=== PATIENT | male | born 1950 | race Caucasian/White ===

== ENCOUNTER 2016-08-12 10:47 | Observation (INO) | payer OTHER ==
--- NOTE | 2016-08-12 12:14 | ED PDOC ---
Arrival/HPI - General Chief Complaint: Chest Pain Time Seen by Provider: 08/12/16 11:24 Historian: Patient - History of Present Illness Narrative History of Present Illness (Text): 08/12/16 12:15 A 65 year old male presents to the emergency department complaining of 2 days chest pain. Patient also notes dizziness for the past few weeks. Patient reports chest pain this morning, but currently does not have chest pain. Describes pain as sharp and tightness. Patient reports stent in [facility]. Patient notes some weakness, but denies fevers or any other complaints at this time. No PMD Time/Duration: Other (2 days) Symptom Onset: Sudden Activities at Onset: Rest Context: Home Associated Symptoms (Text): weakness Past Medical History - Provider Review Nursing Documentation Reviewed: Yes - Cardiac Hx Hypertension: Yes - Pulmonary Hx Respiratory Disorders: No - Neurological Hx Vertigo: Yes - HEENT Hx HEENT Disorder: No - Renal Hx Kidney Stones: Yes - Endocrine/Metabolic Hx Diabetes Mellitus Type 2: Yes - Hematological/Oncological Hx Blood Disorders: No - Integumentary Hx Dermatological Disorder: No - Musculoskeletal/Rheumatological Hx Gout: Yes - Gastrointestinal Hx Gastroesophageal Reflux: Yes - Genitourinary/Gynecological Hx Genitourinary Disorders: No - Psychiatric Hx Psychophysiologic Disorder: No Hx Substance Use: No - Surgical History Hx Appendectomy: Yes Hx Cholecystectomy: Yes Other/Comment: HEMORHOID Family/Social History - Physician Review Nursing Documentation Reviewed: Yes Family/Social History: No Known Family HX Smoking Status: Never Smoked Hx Alcohol Use: Yes Frequency of alcohol use: Socially Hx Substance Use: No Allergies/Home Meds Allergies/Adverse Reactions: Allergies Penicillins Allergy (Verified 08/12/16 11:04) RASH Home Medications: Home Meds Medication Instructions Recorded Confirmed Allopurinol [Zyloprim] 100 mg PO PRN PRN 08/12/16 08/12/16 Atenolol 50 mg PO DAILY 08/12/16 08/12/16 Cholecalciferol [Vitamin D 1000 IU] 1 tab PO DAILY 08/12/16 08/12/16 Clopidogrel [Plavix] 75 mg PO DAILY 08/12/16 08/12/16 Losartan [Cozaar] 100 mg PO DAILY 08/12/16 08/12/16 MetFORMIN [glucoPHAGE] 1 tab PO BID 08/12/16 08/12/16 Pantoprazole [Protonix EC Tab] 40 mg PO DAILY 08/12/16 08/12/16 Rosuvastatin Calcium [Crestor] 10 mg PO DAILY 08/12/16 08/12/16 Review of Systems - Review of Systems Constitutional: Fatigue. absent: Fevers Eyes: Normal ENT: Normal Respiratory: Normal Cardiovascular: Chest Pain Gastrointestinal: Normal Genitourinary Male: Normal Musculoskeletal: Normal Skin: Normal Neurological: Normal Endocrine: Normal Hemo/Lymphatic: Normal Psychiatric: Normal Physical Exam Vital Signs Reviewed: Yes Vital Signs Temp Pulse Resp BP Pulse Ox 08/12/16 17:20 78 16 137/91 H 96 08/12/16 16:48 86 18 143/83 98 08/12/16 15:14 74 18 131/75 96 08/12/16 13:33 79 18 132/77 99 08/12/16 13:30 89 18 138/89 99 08/12/16 12:11 92 H 18 142/90 99 08/12/16 11:21 98.4 F 83 18 144/88 97 08/12/16 11:08 98.4 F 83 16 144/88 97 Temperature: Afebrile Blood Pressure: Normal Pulse: Regular Respiratory Rate: Normal Appearance: Positive for: Well-Appearing, Non-Toxic, Comfortable Pain Distress: None Mental Status: Positive for: Alert and Oriented X 3 - Systems Exam Head: Present: Atraumatic, Normocephalic Pupils: Present: PERRL Extroacular Muscles: Present: EOMI Conjunctiva: Present: Normal Mouth: Present: Moist Mucous Membranes Neck: Present: Normal Range of Motion Respiratory/Chest: Present: Clear to Auscultation, Good Air Exchange. No: Respiratory Distress, Accessory Muscle Use Cardiovascular: Present: Regular Rate and Rhythm, Normal S1, S2. No: Murmurs Abdomen: Present: Normal Bowel Sounds. No: Tenderness, Distention, Peritoneal Signs Back: Present: Normal Inspection Upper Extremity: Present: Normal Inspection. No: Cyanosis, Edema Lower Extremity: Present: Normal Inspection. No: Edema Neurological: Present: GCS=15, CN II-XII Intact, Speech Normal Skin: Present: Warm, Dry, Normal Color. No: Rashes Psychiatric: Present: Alert, Oriented x 3, Normal Insight, Normal Concentration Medical Decision Making ED Course and Treatment: 08/12/16 12:08 Impression: A 65 year old male with chest pain. Differential Diagnosis included but are not limited to: Plan: -- EKG -- chest xray -- labs -- Urinalysis -- Reassess and disposition Progress Notes: EKG: Ordered, reviewed, and independently interpreted the EKG. Rate : 96 BPM Rhythm : NSR Interpretation : LVH Comparison : No previous EKG for comparison. Patient denies aspirin because states "causes acid". chest xray: Creator : Cody Cisneros MD 08/12/2016 12:32 IMPRESSION: No active disease. 08/12/16 13:23 Patient is pain free at this time. Discussed case with Dr. Washington - Lab Interpretations Lab Results: 08/12/16 11:55 08/12/16 11:55 Lab Results 08/12/16 13:00: Urine Color Yellow, Urine Appearance Clear, Urine pH 6.0, Ur Specific Baxley 1.015, Urine Protein Negative, Urine Glucose (UA) Negative, Urine Ketones Negative, Urine Blood Trace-lysed H, Urine Nitrate Negative, Urine Bilirubin Negative, Urine Urobilinogen 0.2, Ur Leukocyte Esterase Negative , Urine RBC 0 - 2, Urine WBC Negative 08/12/16 12:50: PT 10.2, INR 0.94, APTT 26.5 08/12/16 11:55: Triglycerides 392 H, Cholesterol 148, LDL Cholesterol Direct 93 , HDL Cholesterol 30 08/12/16 11:55: Sodium 134, Potassium 3.8, Chloride 98, Carbon Dioxide 28, Anion Gap 12, BUN 9, Creatinine 0.8, Est GFR ( Amer) > 60, Est GFR (Non- Af Amer) > 60, Random Glucose 138 H, Calcium 9.5, Magnesium 2.0, Total Bilirubin 0.6, AST 52, ALT 66 H, Alkaline Phosphatase 79, Lactate Dehydrogenase 340, Total Creatine Kinase 53, Troponin I < 0.01, Total Protein 7.5, Albumin 4.4 , Globulin 3.1, Albumin/Globulin Ratio 1.4 08/12/16 11:55: WBC 8.6, RBC 4.68, Hgb 14.7, Hct 43.8, MCV 93.6, MCH 31.4, MCHC 33.6, RDW 13.3, Plt Count 256, MPV 9.2, Gran % 65.2, Lymph % (Auto) 24.1, Overton % (Auto) 7.3 H, Eos % (Auto) 2.9, Baso % (Auto) 0.5, Gran # 5.62, Lymph # 2.1, Overton # 0.6, Eos # 0.3, Baso # 0.04 I have reviewed the lab results: Yes - RAD Interpretation Radiology Orders: 08/12/16 11:28 CHEST PORTABLE [RAD] Stat - EKG Interpretation Interpreted by ED Physician: Yes Type: 12 lead EKG - Medication Orders Current Medication Orders: Aspirin (Ecotrin) 81 mg PO DAILY LIZ Atenolol (Tenormin) 50 mg PO DAILY LIZ Atorvastatin Calcium (Lipitor) 40 mg PO DIN LIZ Clopidogrel Bisulfate (Plavix) 75 mg PO DAILY LIZ Enoxaparin Sodium (Lovenox) 60 mg SC Q12H LIZ PRN Reason: Protocol Stop: 08/14/16 23:59 Insulin Human Regular (Humulin R Low) 0 units SC ACHS LIZ PRN Reason: Protocol Last Admin: 08/12/16 17:15 Dose: Not Given Non-Admin Reason: Blood Sugar Parameter Losartan Potassium (Cozaar) 100 mg PO DAILY LIZ Meclizine HCl (Antivert) 25 mg PO TID PRN PRN Reason: Dizziness Pantoprazole Sodium (Protonix Ec Tab) 40 mg PO DAILY LIZ Discontinued Medications Atorvastatin Calcium (Lipitor) 40 mg PO DIN LIZ Non-Formulary Medication (Rosuvastatin Calcium [Crestor]) 10 mg PO DAILY LIZ - Scribe Statement The provider has reviewed the documentation as recorded by the Kelvin Munoz Provider Scribe Attestation: All medical record entries made by the Corinaibbenjamin were at my direction and personally dictated by me. I have reviewed the chart and agree that the record accurately reflects my personal performance of the history, physical exam, medical decision making, and the department course for this patient. I have also personally directed, reviewed, and agree with the discharge instructions and disposition. Disposition/Present on Arrival - Present on Arrival Any Indicators Present on Arrival: No History of DVT/PE: No History of Uncontrolled Diabetes: Yes Urinary Catheter: No History of Decub. Ulcer: No History Surgical Site Infection Following: None - Disposition Have Diagnosis and Disposition been Completed?: Yes Diagnosis: Chest pain Disposition: HOSPITALIZED Disposition Time: 03:00 Condition: STABLE
[2016-08-12 12:18] LABS: ADD MANUAL DIFF? NO
[2016-08-12 12:22] LABS: BASO # 0.04 K/mm3 (0.0-2.0); BASO % 0.5 % (0.0-3.0); EOS # 0.3 (0.0-0.7); EOS % 2.9 % (1.5-5.0); GRAN # 5.62 (1.4-6.5); GRAN % 65.2 % (50.0-68.0); HEMATOCRIT 43.8 % (42.0-52.0); LYMPH # 2.1 (1.2-3.4); LYMPH % 24.1 % (22.0-35.0); MEAN CELL VOLUME 93.6 fL (80.0-105.0); MEAN CORPUSCULAR HEMOGLOBIN 31.4 pg (25.0-35.0); MEAN CORPUSCULAR HGB CONC 33.6 g/dl (31.0-37.0); MEAN PLATELET VOLUME 9.2 fl (7.0-11.0); MONO # 0.6 (0.1-0.6); MONO % 7.3 % (1.0-6.0); PLATELET COUNT 256 10^3/uL (120.0-450.0); RED CELL DISTRIBUTION WIDTH 13.3 % (11.5-14.5); WHITE BLOOD COUNT 8.6 10^3/ul (4.5-11.0)
--- NOTE | 2016-08-12 12:31 | RAD ---
HISTORY: cp COMPARISON: No prior. FINDINGS: LUNGS: No active pulmonary disease. PLEURA: No significant pleural effusion identified, no pneumothorax apparent. CARDIOVASCULAR: Normal. OSSEOUS STRUCTURES: No significant abnormalities. VISUALIZED UPPER ABDOMEN: Normal. OTHER FINDINGS: None. IMPRESSION: No active disease.
[2016-08-12 12:57] LABS: INR 0.94 (0.93-1.08); PARTIAL THROMBOPLASTIN TIME 26.5 Seconds (23.7-30.8)
[2016-08-12 12:59] LABS: ALB/GLOB RATIO 1.4 (1.1-1.8); ALKALINE PHOSPHATASE 79 U/L (38-133); ALT/SGPT 66 U/L (7-56); AST/SGOT 52 U/L (15-59); BILIRUBIN,TOTAL 0.6 mg/dL (0.2-1.3); BLOOD UREA NITROGEN 9 mg/dL (7-21); CALCIUM 9.5 mg/dL (8.4-10.5); CARBON DIOXIDE 28 mmol/L (21-33); CHLORIDE 98 mmol/L (98-107); GFR AFRICAN-AMERICAN > 60; GLUCOSE,RANDOM 138 mg/dL (70-110); POTASSIUM 3.8 mmol/L (3.6-5.0); SODIUM 134 mmol/L (132-148); TOTAL PROTEIN 7.5 g/dL (5.8-8.3)
[2016-08-12 13:09] LABS: URINE BILIRUBIN NEGATIVE (NEGATIVE); URINE BLOOD TRACE-LYSED (NEGATIVE); URINE GLUCOSE (UA) NEGATIVE (NEGATIVE); URINE KETONE NEGATIVE (NEGATIVE); URINE LEUKOCYTE ESTERASE NEGATIVE Leu/uL (NEGATIVE); URINE PROTEIN NEGATIVE mg/dL (<30 mg/dL); URINE UROBILINOGEN 0.2 E.U./dL (<1 E.U./dL)
[2016-08-12 13:10] LABS: URINE APPEARANCE CLEAR (CLEAR); URINE COLOR YELLOW (YELLOW)
[2016-08-12 13:11] LABS: TROPONIN I < 0.01 ng/mL
[2016-08-12 13:15] LABS: URINE RBC 0 - 2 /hpf (0-2); URINE WBC NEGATIVE /hpf (0-6)
--- NOTE | 2016-08-12 14:51 | CP.PCM.HP ---
<Meng Bright - Last Filed: 08/12/16 14:47> History of Present Illness - History of Present Illness History of Present Illness: This is a 65 yo male with past medical hx of CAD with stent, NJ (2003), DM, HTN , vertigo presenting with chest pain x 2 days. Pain is substernal with some radiation to left arm. Sensation is "spasm." Not similar to pain when pt had [place] in 2003. Nothing makes better/worse. Pt is noncompliant with home meds and ran out 3 weeks ago. He denies fever, but has associated sob, palpitations. No N/V. Pt has chronic dizziness and meclizine usually helps. No diaphoresis. CP does feel somewhat better now. PMH: CAD, [place], HTN, DM, vertigo PSH: stent in 2003, appendectomy, cholecystectomy, hemorrhoids Allergies: asa Home meds: plavix, atenolol, losartan, crestor, metformin, allopurinol prn FH: Brother- heart disease Social hx: Former smoker. Quit 1989. Rarely drinks. Lives with sister. From [facility]. Present on Admission - Present on Admission Any Indicators Present on Admission: No History of DVT/PE: No History of Uncontrolled Diabetes: No Urinary Catheter: No Decubitus Ulcer Present: No Review of Systems - Review of Systems All systems: reviewed and no additional remarkable complaints except Review of Systems: neg except for hpi. Past Patient History - Infectious Disease Hx of Infectious Diseases: None - Tetanus Immunizations Tetanus Immunization: Unknown - Past Medical History & Family History Past Medical History?: Yes Pertinent Family History: Heart dx in family - Past Social History Smoking Status: Former Smoker Chewing Tobacco Use: No Cigar Use: No Alcohol: Occasional Drugs: Denies Home Situation {Lives}: With Family Domestic Violence: Negative - CARDIAC Hx Hypertension: Yes - PULMONARY Hx Respiratory Disorders: No - NEUROLOGICAL Hx Vertigo: Yes - HEENT Hx HEENT Problems: No - RENAL Hx Kidney Stones: Yes - ENDOCRINE/METABOLIC Hx Diabetes Mellitus Type 2: Yes - HEMATOLOGICAL/ONCOLOGICAL Hx Blood Disorders: No - INTEGUMENTARY Hx Dermatological Problems: No - MUSCULOSKELETAL/RHEUMATOLOGICAL Hx Gout: Yes - GASTROINTESTINAL Hx Gastroesophageal Reflux: Yes - GENITOURINARY/GYNECOLOGICAL Hx Genitourinary Disorders: No - PSYCHIATRIC Hx Psychophysiologic Disorder: No Hx Substance Use: No - SURGICAL HISTORY Hx Appendectomy: Yes Hx Cholecystectomy: Yes Other/Comment: HEMORHOID Meds Allergies/Adverse Reactions: Allergies Allergy/AdvReac Type Severity Reaction Status Date / Time Penicillins Allergy RASH Verified 08/12/16 11:04 Physical Exam - Constitutional Appears: Non-toxic, No Acute Distress - Head Exam Head Exam: ATRAUMATIC, NORMAL INSPECTION, NORMOCEPHALIC - Eye Exam Eye Exam: EOMI - ENT Exam ENT Exam: Mucous Membranes Moist - Neck Exam Neck exam: Positive for: Full Rom, Normal Inspection - Respiratory Exam Respiratory Exam: Decreased Breath Sounds. absent: Respiratory Distress - Cardiovascular Exam Cardiovascular Exam: REGULAR RHYTHM, +S1, +S2 - GI/Abdominal Exam GI & Abdominal Exam: Normal Bowel Sounds, Soft. absent: Tenderness Additional comments: Surgical scar, appy - Extremities Exam Extremities exam: Positive for: full ROM, normal inspection - Back Exam Back exam: NORMAL INSPECTION - Neurological Exam Neurological exam: Alert, CN II-XII Intact, Oriented x3 - Psychiatric Exam Psychiatric exam: Normal Affect, Normal Mood - Skin Skin Exam: Dry, Intact, Normal Color, Warm Results - Vital Signs Recent Vital Signs: Last Vital Signs Temp 98.4 F 08/12/16 11:21 Pulse 79 08/12/16 13:33 Resp 18 08/12/16 13:33 BP 132/77 08/12/16 13:33 Pulse Ox 99 08/12/16 13:33 - Labs Result Diagrams: 08/12/16 11:55 08/12/16 11:55 Assessment & Plan - Assessment and Plan (Free Text) Assessment: This is a 65 yo male with pmh of cad with stent, NJ, DM, HTN, vertigo presenting with chest pain x 2 days 1. Chest pain, r/o ACS -EKG shows NSR at 92, LVH -trops x 3 -CXR negative -echo pending -cardio consult -f/u am labs -plavix daily -atenolol daily -lipid panel -continue losartan daily -continue crestor daily 2. Hx of dizziness/vertigo -meclizine prn -orthostatics 3. hx of HTN -continue losartan daily 4. hx of DM -hold home metformin -ISS -CCD diet -A1C pending 5. hx of HLD -lipid panel -crestor daily 6. GI/DVT ppx -protonix daily -SCDs dw Dr. Goel <Shiva Goel - Last Filed: 08/12/16 17:32> Results - Vital Signs Recent Vital Signs: Last Vital Signs Temp 98.4 F 08/12/16 11:21 Pulse 78 08/12/16 17:20 Resp 16 08/12/16 17:20 BP 137/91 H 08/12/16 17:20 Pulse Ox 96 08/12/16 17:20 - Labs Result Diagrams: 08/12/16 11:55 08/12/16 11:55 Attending/Attestation - Attestation I have personally seen and examined this patient.: Yes I have fully participated in the care of the patient.: Yes I have reviewed all pertinent clinical information: Yes Notes (Text): 08/12/16 17:29 65 year old male with past medical history of CAD s/p stent, diabetes, hypertension and chronic vertigo who presents with complaint of chest pain x 2 days. Will admit to telemetry unit and obtain serial cardiac enzymes to rule out ACS. Echocardiogram is ordered and cardiology evaluation is requested. Continue with plavix (not on aspirin due to stomach upset), atenolol, losartan and statin. Continue with insulin ss for diabetes. Metformin on hold for now. Continue with meclizine for complaint of chronic vertigo. Orthostatics ordered. Shiva Goel MD Hospitalist.
--- NOTE | 2016-08-12 15:15 | CARD ---
APPROVED REPORT EKG Measurement Heart [id number] <Conclusion> Normal sinus rhythm Left axis deviation Moderate voltage criteria for LVH Inferior infarct, age undetermined STTW changes
[2016-08-12 16:19] LABS: CHOLESTEROL 148 mg/dL (130-200)
[2016-08-12] MEDS: Insulin Reg-LOW-Coverage SC SCH ×2 (17:15→22:00)
[2016-08-12 18:33] VITALS: BMI 29.9
[2016-08-12] MEDS: Enoxaparin 60 mg Syringe SC SCH (20:43)
[2016-08-13 00:38] VITALS: O2SAT 98
[2016-08-13] MEDS: Insulin Reg-LOW-Coverage SC SCH (08:07)
[2016-08-13] MEDS: Enoxaparin 60 mg Syringe SC SCH (08:08)
[2016-08-13 08:21] LABS: ADD MANUAL DIFF? NO
[2016-08-13 08:25] LABS: BASO # 0.03 K/mm3 (0.0-2.0); BASO % 0.4 % (0.0-3.0); EOS # 0.2 (0.0-0.7); EOS % 2.6 % (1.5-5.0); GRAN # 4.75 (1.4-6.5); GRAN % 61.8 % (50.0-68.0); HEMATOCRIT 45.5 % (42.0-52.0); LYMPH # 2.2 (1.2-3.4); LYMPH % 29.2 % (22.0-35.0); MEAN CELL VOLUME 93.6 fL (80.0-105.0); MEAN CORPUSCULAR HEMOGLOBIN 31.3 pg (25.0-35.0); MEAN CORPUSCULAR HGB CONC 33.4 g/dl (31.0-37.0); MEAN PLATELET VOLUME 9.3 fl (7.0-11.0); MONO # 0.5 (0.1-0.6); PLATELET COUNT 274 10^3/uL (120.0-450.0); RED CELL DISTRIBUTION WIDTH 13.4 % (11.5-14.5); WHITE BLOOD COUNT 7.7 10^3/ul (4.5-11.0)
[2016-08-13 08:40] LABS: ALB/GLOB RATIO 1.4 (1.1-1.8); ALKALINE PHOSPHATASE 72 U/L (38-133); ALT/SGPT 83 U/L (7-56); AST/SGOT 52 U/L (15-59); BILIRUBIN,TOTAL 0.8 mg/dL (0.2-1.3); BLOOD UREA NITROGEN 13 mg/dL (7-21); CALCIUM 9.5 mg/dL (8.4-10.5); CARBON DIOXIDE 30 mmol/L (21-33); CHLORIDE 99 mmol/L (98-107); GFR AFRICAN-AMERICAN > 60; GLUCOSE,RANDOM 117 mg/dL (70-110); MAGNESIUM 2.1 mg/dL (1.7-2.2); POTASSIUM 4.2 mmol/L (3.6-5.0); SODIUM 135 mmol/L (132-148); TOTAL PROTEIN 7.6 g/dL (5.8-8.3)
[2016-08-13 08:51] LABS: TROPONIN I < 0.01 ng/mL
--- NOTE | 2016-08-13 09:23 | CARD ---
APPROVED REPORT EXAM: Two-dimensional and M-mode echocardiogram with Doppler and color Doppler. Other Information Quality : AverageRhythm : INDICATION Chest Pain 2D DIMENSIONS IVSd1.0 (0.7-1.1cm)LVDd5.2 (3.9-5.9cm) PWd1.0 (0.7-1.1cm)LVDs4.0 (2.5-4.0cm) FS (%) 21.9 %LVEF (%)44.0 (>50%) M-Mode DIMENSIONS Left Atrium (MM)3.70 (2.5-4.0cm)Aortic Root3.20 (2.2-3.7cm) Aortic Cusp Exc.1.80 (1.5-2.0cm) Aortic Valve AoV Peak Lcfjhiru431.0cm/s Mitral Valve MV E Qvtvnbui71.8cm/sMV A Lazwgxdn17.2cm/sE/A ratio0.5 TDI Lateral E' Peak V7.02cm/sMedial E' Peak V5.07cm/sE/Lateral E'7.7 E/Medial E'10.6 Tricuspid Valve TR Peak [id number]/sRAP [id number] Peak Gr.18mmHg [id number] LEFT VENTRICLE The left ventricle is normal size. There is normal left ventricular wall thickness. Left ventricle systolic function is mildly impaired. The Ejection Fraction is 40-45%. There is mild global hypokinesis AORTIC VALVE The aortic valve is normal in structure. MITRAL VALVE The mitral valve is normal in structure. Mitral regurgitation is trace. TRICUSPID VALVE The tricuspid valve is normal in structure. There is trace tricuspid regurgitation. PULMONIC VALVE The pulmonic valve is not well visualized. GREAT VESSELS The aortic root is normal in size. PERICARDIAL EFFUSION There is no pericardial effusion. <Conclusion> The left ventricle is normal size. There is normal left ventricular wall thickness. Left ventricle systolic function is mildly impaired. The Ejection Fraction is 40-45%. There is mild global hypokinesis
[2016-08-13] MEDS ORDERED: Pantoprazole 40 mg EC Tab PO SCH (10:00)
--- NOTE | 2016-08-13 11:12 | CON ---
DATE: 08/13/2016 Cardiology consultation (for Dr. Meadows). HISTORY OF PRESENT ILLNESS: The patient is a 65-year-old male who recently came from the [facility] who presents with an episode of chest pain. His symptoms are now resolved. PAST MEDICAL HISTORY: Notable for diabetes mellitus, hypertension and hypercholesterolemia. He ran out of medications since coming from the [facility]. He is currently chest pain free. He is status post myocardial infarction several years ago and underwent a stent in the [facility]. SOCIAL HISTORY: Former smoker. REVIEW OF SYSTEMS: A 14-point review of systems was reviewed in detail. The patient is now cardiac symptom-free. PHYSICAL EXAMINATION: VITAL SIGNS: Blood pressure 133/87, heart rate is in the 70s. NECK: Negative JVD. LUNGS: Without rales. HEART: Revealed S1, S2. EXTREMITIES: Without edema. EKG shows an old inferior wall myocardial infarction. Echocardiogram revealed an ejection fraction of approximately 40%. IMPRESSION: 1. Episode of chest pain, which is now resolved. 2. No evidence for acute coronary syndrome. 3. Ischemic cardiomyopathy. 4. Diabetes mellitus. 5. Old inferior wall myocardial infarction. 6. Coronary artery disease. PLAN: Given these findings, the patient will need to have his medications renewed. I have discussed with the patient about the need to find a physician for continued care. From a cardiac perspective, the patient can be discharged. I would advise that he be followed up in the clinic until he can mulu e arrangements to find a private doctor. Aman Darling MD cc: [id number] TT: 08/13/2016 11:11:55 Confirmation # [id number] Dictation # [id number]
[2016-08-13 11:31] VITALS: BP 121/87; PULSE 76; RESP 16; TEMP 97
--- NOTE | 2016-08-13 17:06 | CP.PCM.DIS ---
<Dung Hylton - Last Filed: 08/13/16 16:47> Provider - Provider Date of Admission: 08/12/16 13:24 Attending physician: Venita [place] MD Primary care physician: NO PRIMARY CARE PROVIDER Consults: Mckinley: Morales Time Spent in preparation of Discharge (in minutes): 32 Diagnosis - Discharge Diagnosis (1) Heart palpitations Status: Resolved Priority: High (2) Chest pain Status: Resolved Priority: High Hospital Course - Lab Results Lab Results: Most Recent Lab Values WBC 7.7 10^3/ul (4.5-11.0) 08/13/16 08:19 RBC 4.86 10^6/uL (3.5-6.1) 08/13/16 08:19 Hgb 15.2 gm/dL (14.0-18.0) 08/13/16 08:19 Hct 45.5 % (42.0-52.0) 08/13/16 08:19 MCV 93.6 fL (80.0-105.0) 08/13/16 08:19 MCH 31.3 pg (25.0-35.0) 08/13/16 08:19 MCHC 33.4 g/dl (31.0-37.0) 08/13/16 08:19 RDW 13.4 % (11.5-14.5) 08/13/16 08:19 Plt Count 274 10^3/uL (120.0-450.0) 08/13/16 08:19 MPV 9.3 fl (7.0-11.0) 08/13/16 08:19 Gran % 61.8 % (50.0-68.0) 08/13/16 08:19 Lymph % (Auto) 29.2 % (22.0-35.0) 08/13/16 08:19 [place] % (Auto) 6.0 % (1.0-6.0) 08/13/16 08:19 Eos % (Auto) 2.6 % (1.5-5.0) 08/13/16 08:19 Baso % (Auto) 0.4 % (0.0-3.0) 08/13/16 08:19 Gran # 4.75 (1.4-6.5) 08/13/16 08:19 Lymph # 2.2 (1.2-3.4) 08/13/16 08:19 [place]duff[place] # 0.5 (0.1-0.6) 08/13/16 08:19 Eos # 0.2 (0.0-0.7) 08/13/16 08:19 Baso # 0.03 K/mm3 (0.0-2.0) 08/13/16 08:19 PT 10.2 Seconds (9.9-11.8) 08/12/16 12:50 INR 0.94 (0.93-1.08) 08/12/16 12:50 APTT 26.5 Seconds (23.7-30.8) 08/12/16 12:50 Sodium 135 mmol/L (132-148) 08/13/16 08:19 Potassium 4.2 mmol/L (3.6-5.0) 08/13/16 08:19 Chloride 99 mmol/L (98-107) 08/13/16 08:19 Carbon Dioxide 30 mmol/L (21-33) 08/13/16 08:19 Anion Gap 10 (10-20) 08/13/16 08:19 BUN 13 mg/dL (7-21) 08/13/16 08:19 Creatinine 0.9 mg/dL (0.5-1.4) 08/13/16 08:19 Est GFR ( Amer) > 60 08/13/16 08:19 Est GFR (Non-Af Amer) > 60 08/13/16 08:19 POC Glucose (mg/dL) 169 mg/dL (65-110) H 08/13/16 11:13 Random Glucose 117 mg/dL (70-110) H 08/13/16 08:19 Hemoglobin A1c 7.1 % (4.2-6.5) H 08/12/16 11:55 Calcium 9.5 mg/dL (8.4-10.5) 08/13/16 08:19 Phosphorus 3.0 mg/dL (2.5-4.5) 08/13/16 08:19 Magnesium 2.1 mg/dL (1.7-2.2) 08/13/16 08:19 Total Bilirubin 0.8 mg/dL (0.2-1.3) 08/13/16 08:19 AST 52 U/L (15-59) 08/13/16 08:19 ALT 83 U/L (7-56) H 08/13/16 08:19 Alkaline Phosphatase 72 U/L (38-133) 08/13/16 08:19 Lactate Dehydrogenase 307 U/L (333-699) L 08/13/16 08:19 Total Creatine Kinase 39 U/L (35-230) 08/13/16 08:19 Troponin I < 0.01 ng/mL 08/13/16 08:19 Total Protein 7.6 g/dL (5.8-8.3) 08/13/16 08:19 Albumin 4.4 g/dL (3.0-4.8) 08/13/16 08:19 Globulin 3.2 gm/dL 08/13/16 08:19 Albumin/Globulin Ratio 1.4 (1.1-1.8) 08/13/16 08:19 Triglycerides 392 mg/dL (35-160) H 08/12/16 11:55 Cholesterol 148 mg/dL (130-200) 08/12/16 11:55 LDL Cholesterol Direct 93 mg/dL (0-129) 08/12/16 11:55 HDL Cholesterol 30 mg/dL (29-60) 08/12/16 11:55 TSH 3rd Generation 0.58 mIU/mL (0.46-4.68) 08/13/16 08:19 Urine Color Yellow (YELLOW) 08/12/16 13:00 Urine Appearance Clear (CLEAR) 08/12/16 13:00 Urine pH 6.0 (4.7-8.0) 08/12/16 13:00 Ur Specific [place] 1.015 (1.005-1.035) 08/12/16 13:00 Urine Protein Negative mg/dL (<30 mg/dL) 08/12/16 13:00 Urine Glucose (UA) Negative mg/dL (NEGATIVE) 08/12/16 13:00 Urine Ketones Negative mg/dL (NEGATIVE) 08/12/16 13:00 Urine Blood Trace-lysed (NEGATIVE) H 08/12/16 13:00 Urine Nitrate Negative (NEGATIVE) 08/12/16 13:00 Urine Bilirubin Negative (NEGATIVE) 08/12/16 13:00 Urine Urobilinogen 0.2 E.U./dL (<1 E.U./dL) 08/12/16 13:00 Ur Leukocyte Esterase Negative Madeline/uL (NEGATIVE) 08/12/16 13:00 Urine RBC 0 - 2 /hpf (0-2) 08/12/16 13:00 Urine WBC Negative /hpf (0-6) 08/12/16 13:00 - Hospital Course Hospital Course: This is a 65 yo male with past medical hx of CAD with stent, ND (2003), DM, HTN , and vertigo who presented with left substernal chest pain radiating to arm x2 days. Since arrival, the patient reports relief of his symptoms. Denies any chest pain or palpitations today, feels much better. While here, patient got an Echo and was seen by Cardio. Per Cardio, patient needs an outpatient stress test. Echo was notable for LVEF 44%, normal LV wall thickness, mild LV systolic dysfxn, and mild global hypokinesis. Trops x3 were negative. Patient was cleared for discharge by cardiology. He was instructed to fill all scripts and take as directed, to establish himself with a PMD and Esthetician/Spa Coordinator in the area (recently moved here from [place], no doctor here), and to obtain an outpatient stress test. Patient expressed understanding and agreement. He was then discharged. Discharge Exam - Head Exam Head Exam: ATRAUMATIC, NORMAL INSPECTION, NORMOCEPHALIC - Eye Exam Eye Exam: EOMI, Normal appearance. absent: Conjunctival injection, Scleral icterus Pupil Exam: absent: Irregular, Unequal - ENT Exam ENT Exam: Mucous Membranes Moist - Neck Exam Neck exam: Full Rom - Respiratory Exam Respiratory Exam: Clear to PA & Lateral, NORMAL BREATHING PATTERN, UNREMARKABLE. absent: Accessory Muscle Use, Chest Wall Tenderness, Decreased Breath Sounds, Rales, Rhonchi, Wheezes - Cardiovascular Exam Cardiovascular Exam: REGULAR RHYTHM, RRR, +S1, +S2. absent: Bradycardia, Tachycardia, Clicks, Diastolic murmur, Irregular Rhythm, JVD, +S4, Systolic Murmur - GI/Abdominal Exam GI & Abdominal Exam: Normal Bowel Sounds, Soft, Unremarkable. absent: Diminished Bowel Sounds, Hyperactive Bowel Sounds, Hypoactive Bowel Sounds, Tenderness - Extremities Exam Extremities exam: full ROM, normal capillary refill, normal inspection, pedal pulses present - Back Exam Back exam: NORMAL INSPECTION - Neurological Exam Neurological exam: Alert, Oriented x3 - Psychiatric Exam Psychiatric exam: Normal Affect, Normal Mood - Skin Skin Exam: Dry, Intact, Normal Color, Warm Discharge Plan - Discharge Medications Prescriptions: Aspirin [Aspirin Chewable] 81 mg PO DAILY #30 ctb Atenolol 50 mg PO DAILY #30 tab Clopidogrel [Plavix] 75 mg PO DAILY #30 tab Losartan [Cozaar] 100 mg PO DAILY #30 tab Rosuvastatin Calcium [Crestor] 10 mg PO DAILY #30 tab - Follow Up Plan Condition: STABLE Disposition: HOME/ ROUTINE Instructions: Angina (DC), Chest Pain (DC), Palpitations (DC) Additional Instructions: Please take all medications as prescribed. Please establish yourself with a Primary Medical Doctor and follow up within 1 week of discharge (Referral provided for Dr. Armas and [facility]) . Please establish yourself with a Esthetician/Spa Coordinator and follow up within 1 week of discharge (Referral provided for Dr. Meadows). Referrals: [facility] at [facility] [Outside] Halle Armas MD [Staff Provider] - Janet Meadows MD [Staff Provider] - <Sanya Meehan - Last Filed: 08/13/16 22:00> Provider - Provider Date of Admission: 08/12/16 13:24 Attending physician: Venita [place] MD Primary care physician: NO PRIMARY CARE PROVIDER Hospital Course - Lab Results Lab Results: Most Recent Lab Values WBC 7.7 10^3/ul (4.5-11.0) 08/13/16 08:19 RBC 4.86 10^6/uL (3.5-6.1) 08/13/16 08:19 Hgb 15.2 gm/dL (14.0-18.0) 08/13/16 08:19 Hct 45.5 % (42.0-52.0) 08/13/16 08:19 MCV 93.6 fL (80.0-105.0) 08/13/16 08:19 MCH 31.3 pg (25.0-35.0) 08/13/16 08:19 MCHC 33.4 g/dl (31.0-37.0) 08/13/16 08:19 RDW 13.4 % (11.5-14.5) 08/13/16 08:19 Plt Count 274 10^3/uL (120.0-450.0) 08/13/16 08:19 MPV 9.3 fl (7.0-11.0) 08/13/16 08:19 Gran % 61.8 % (50.0-68.0) 08/13/16 08:19 Lymph % (Auto) 29.2 % (22.0-35.0) 08/13/16 08:19 [place] % (Auto) 6.0 % (1.0-6.0) 08/13/16 08:19 Eos % (Auto) 2.6 % (1.5-5.0) 08/13/16 08:19 Baso % (Auto) 0.4 % (0.0-3.0) 08/13/16 08:19 Gran # 4.75 (1.4-6.5) 08/13/16 08:19 Lymph # 2.2 (1.2-3.4) 08/13/16 08:19 [place]duff[place] # 0.5 (0.1-0.6) 08/13/16 08:19 Eos # 0.2 (0.0-0.7) 08/13/16 08:19 Baso # 0.03 K/mm3 (0.0-2.0) 08/13/16 08:19 PT 10.2 Seconds (9.9-11.8) 08/12/16 12:50 INR 0.94 (0.93-1.08) 08/12/16 12:50 APTT 26.5 Seconds (23.7-30.8) 08/12/16 12:50 Sodium 135 mmol/L (132-148) 08/13/16 08:19 Potassium 4.2 mmol/L (3.6-5.0) 08/13/16 08:19 Chloride 99 mmol/L (98-107) 08/13/16 08:19 Carbon Dioxide 30 mmol/L (21-33) 08/13/16 08:19 Anion Gap 10 (10-20) 08/13/16 08:19 BUN 13 mg/dL (7-21) 08/13/16 08:19 Creatinine 0.9 mg/dL (0.5-1.4) 08/13/16 08:19 Est GFR ( Amer) > 60 08/13/16 08:19 Est GFR (Non-Af Amer) > 60 08/13/16 08:19 POC Glucose (mg/dL) 169 mg/dL (65-110) H 08/13/16 11:13 Random Glucose 117 mg/dL (70-110) H 08/13/16 08:19 Hemoglobin A1c 7.1 % (4.2-6.5) H 08/12/16 11:55 Calcium 9.5 mg/dL (8.4-10.5) 08/13/16 08:19 Phosphorus 3.0 mg/dL (2.5-4.5) 08/13/16 08:19 Magnesium 2.1 mg/dL (1.7-2.2) 08/13/16 08:19 Total Bilirubin 0.8 mg/dL (0.2-1.3) 08/13/16 08:19 AST 52 U/L (15-59) 08/13/16 08:19 ALT 83 U/L (7-56) H 08/13/16 08:19 Alkaline Phosphatase 72 U/L (38-133) 08/13/16 08:19 Lactate Dehydrogenase 307 U/L (333-699) L 08/13/16 08:19 Total Creatine Kinase 39 U/L (35-230) 08/13/16 08:19 Troponin I < 0.01 ng/mL 08/13/16 08:19 Total Protein 7.6 g/dL (5.8-8.3) 08/13/16 08:19 Albumin 4.4 g/dL (3.0-4.8) 08/13/16 08:19 Globulin 3.2 gm/dL 08/13/16 08:19 Albumin/Globulin Ratio 1.4 (1.1-1.8) 08/13/16 08:19 Triglycerides 392 mg/dL (35-160) H 08/12/16 11:55 Cholesterol 148 mg/dL (130-200) 08/12/16 11:55 LDL Cholesterol Direct 93 mg/dL (0-129) 08/12/16 11:55 HDL Cholesterol 30 mg/dL (29-60) 08/12/16 11:55 TSH 3rd Generation 0.58 mIU/mL (0.46-4.68) 08/13/16 08:19 Urine Color Yellow (YELLOW) 08/12/16 13:00 Urine Appearance Clear (CLEAR) 08/12/16 13:00 Urine pH 6.0 (4.7-8.0) 08/12/16 13:00 Ur Specific [place] 1.015 (1.005-1.035) 08/12/16 13:00 Urine Protein Negative mg/dL (<30 mg/dL) 08/12/16 13:00 Urine Glucose (UA) Negative mg/dL (NEGATIVE) 08/12/16 13:00 Urine Ketones Negative mg/dL (NEGATIVE) 08/12/16 13:00 Urine Blood Trace-lysed (NEGATIVE) H 08/12/16 13:00 Urine Nitrate Negative (NEGATIVE) 08/12/16 13:00 Urine Bilirubin Negative (NEGATIVE) 08/12/16 13:00 Urine Urobilinogen 0.2 E.U./dL (<1 E.U./dL) 08/12/16 13:00 Ur Leukocyte Esterase Negative Madeline/uL (NEGATIVE) 08/12/16 13:00 Urine RBC 0 - 2 /hpf (0-2) 08/12/16 13:00 Urine WBC Negative /hpf (0-6) 08/12/16 13:00 Attending/Attestation - Attestation I have personally seen and examined this patient.: Yes I have fully participated in the care of the patient.: Yes I have reviewed all pertinent clinical information, including history, physical exam and plan: Yes Notes (Text): 08/13/16 21:58 Patient seen and examined at bedside. Vitals, labs, orders and notes reviewed. Patient remains asymptomatic and feels better. No new complaints, ACS ruled out with -ve cardiac enzymes and normal EKG/Telemetry. Case d/w cardiology and outpatient stress test will be done within 72 hours. Reviewed and agree with the plan outlined above.
--- NOTE | 2016-08-15 08:30 | CON ---
DATE: 08/12/2016 REASON FOR CONSULTATION: Chest pain, generalized weakness, feels a spasm, history of coronary artery disease, status post stent in 2003 in [facility], diabetes, hypertension, hyperlipidemia. BRIEF CLINICAL HISTORY: This is a 65-year-old male with past medical history significant for MO in 2 004 in [facility], status post PTCA and 1 stent in 2003 in [facility], diabetes, hypertension, hype rlipidemia, history of vertigo, presented with dizziness, generalized weakness and a pinching like pa in in the chest, so came to the Emergency Room. Denies any chest pain, dyspnea on exertion recently. Past history significant for diabetes, hypertension, hyperlipidemia, coronary artery disease status post a stent 2003 after MO. The patient used to go yearly stress test in [facility] until 2014 aft er that patient moved to [facility], did not get a stress test. Last stress test was 2014. PAST MEDICAL HISTORY: Significant for diabetes, hypertension, hyperlipidemia, vertigo. PAST SURGICAL HISTORY: Significant for appendectomy, cholecystectomy, hemorrhoid surgery, history of MO and status post a stent in 2003. ALLERGIES: No known drug allergy. CURRENT MEDICATIONS: At home, the patient takes aspirin, Plavix, atenolol, losartan, Crestor, metfor min, allopurinol. REVIEW OF SYSTEMS: As per HPI. PHYSICAL EXAMINATION: VITAL SIGNS: Temperature afebrile, heart rate ____, blood pressure 130/95. HEENT: PERRLA. Extraocular muscles intact. NECK: Supple. No carotid bruits. No thyromegaly. CHEST: Clear to auscultation. HEART: S1, S2 regular. ABDOMEN: Soft. EXTREMITIES: Clubbing and cyanosis negative. LABORATORY DATA: Blood workup as follows: WBC 8.6, hemoglobin 14.____, hematocrit 43.8, platelet co unt 256. Chemistry shows sodium 134, potassium 3.8, chloride 97, ____ , anion gap of ____, BUN 9, cr eatinine 0.9, troponin 0.01 negative. Triglyceride 392, cholesterol 148, LDL 93, HDL 30. EKG showed normal sinus, left axis deviation. No acute ST-T changes noted. IMPRESSION: Chest pain, history of coronary artery____, diabetes, hypertension, hyperlipidemia, hist ory of a stent in 2003. History of myocardial infarction. RECOMMENDATION: We treat unstable angina, if the troponin remains negative, patient can be discharge d home, follow up his stress test outpatient. I have discussed with Dr. Goel, will discuss with the patient. If troponin positive, will do the cardiac catheterization on Monday. Janet Meadows MD cc: [id number] TT: 08/12/2016 21:45:00 Confirmation # [id number] Dictation # [id number]
== END 2016-08-13 15:10 | disposition home or self-care (01) ==
LOC: ED 10:47 → ERH 13:24 → 2RSO 17:51
PROVIDERS: ADMIT Hospitalist; ATTEND Hospitalist
DX: R07.89 Other chest pain (principal); R00.2 Palpitations; I25.10 Atherosclerotic heart disease of native coronary artery without angina pectoris; I10 Essential (primary) hypertension; E11.9 Type 2 diabetes mellitus without complications; I25.5 Ischemic cardiomyopathy; R42 Dizziness and giddiness; E78.5 Hyperlipidemia, unspecified; E78.00 Pure hypercholesterolemia, unspecified; I25.2 Old myocardial infarction; Z79.84 Long term (current) use of oral hypoglycemic drugs; Z87.891 Personal history of nicotine dependence; Z88.0 Allergy status to penicillin; Z95.5 Presence of coronary angioplasty implant and graft
CPT/HCPCS: 36415; 71010; 80053; 80061; 81001; 82550; 82948; 83036; 83615; 83735; 84100; 84443; 84484; 85025; 85610; 85730; 93005; 93306; 99285; G0378; J1650

== ENCOUNTER 2016-11-02 06:35 | Observation (INO) | payer OTHER ==
[2016-11-02 07:13] VITALS: O2SAT 98
--- NOTE | 2016-11-02 07:45 | ED PDOC ---
Arrival/HPI - General Historian: Patient - General Chief Complaint: Chest Pain Time Seen by Provider: 11/02/16 06:59 - History of Present Illness Narrative History of Present Illness (Text): 11/02/16 07:38 66 Yohan Lim w PMHx specifically significant for HLD, HTN, AMI s/p stents 2003, and DM, presents with heavy, non-radiating, 2/10 chest pain in the substernal to left area of the chest of 10 hours duration, on and off. Laying on his side makes it better, walking and putting on his seat belt make it worse. The pain is associated with palpitations and sob but no diaphoresis. The pain started at 9PM last night, and at midnight last night, he felt like he was going to pass out because he was having palpitations, for which he took atenolol. His BP last night was 162/100 when he was symptomatic. He takes a daily ASA and took one yesterday morning but did not take one when the pain started and has not taken one this morning. Patient denies f/ch/n/v/d. He further denies dizziness, calf tenderness, loss of vision or change in vision. No further complaints at this time. PMD: No primary care doc Cardio: Dr. Meadows PSHx: Stents 2003 PMHx: HLD, HTN, AMI s/p Stents 2003, DM, Gout All: PCNs SocHx: Former smoker quit 1989; denies etoh, illicits FamHx: HTN Meds: Reviewed in [facility] (Vaughn Smallwood) Past Medical History - Provider Review Nursing Documentation Reviewed: Yes - Travel History Have you recently traveled outside [place] w/in the past 3 mons?: No - Infectious Disease Hx of Infectious Diseases: None - Tetanus Immunization Tetanus Immunization: Unknown - Cardiac Hx Hypertension: Yes - Pulmonary Hx Respiratory Disorders: No - Neurological Hx Vertigo: Yes - HEENT Hx HEENT Disorder: No - Renal Hx Kidney Stones: Yes - Endocrine/Metabolic Hx Diabetes Mellitus Type 2: Yes - Hematological/Oncological Hx Blood Disorders: No - Integumentary Hx Dermatological Disorder: No - Musculoskeletal/Rheumatological Hx Gout: Yes - Gastrointestinal Hx Gastroesophageal Reflux: Yes - Genitourinary/Gynecological Hx Genitourinary Disorders: No - Psychiatric Hx Psychophysiologic Disorder: No Hx Substance Use: No - Surgical History Hx Angioplasty: Yes (stent x1 01/16/2004) Hx Appendectomy: Yes Hx Cholecystectomy: Yes Other/Comment: HEMORHOID Family/Social History - Physician Review Nursing Documentation Reviewed: Yes Family/Social History: Hypertension Smoking Status: Former Smoker Hx Alcohol Use: No Hx Substance Use: No Allergies/Home Meds Allergies/Adverse Reactions: Allergies Penicillins Allergy (Verified 11/02/16 06:45) RASH Home Medications: Home Meds Medication Instructions Recorded Confirmed Allopurinol [Zyloprim] 100 mg PO PRN PRN 08/12/16 11/02/16 Cholecalciferol [Vitamin D 1000 IU] 1 tab PO DAILY 08/12/16 11/02/16 MetFORMIN [glucoPHAGE] 500 tab PO BID 08/12/16 11/02/16 Pantoprazole [Protonix EC Tab] 40 mg PO DAILY 08/12/16 11/02/16 Review of Systems - Physician Review All systems were reviewed & negative as marked: Yes - Review of Systems Constitutional: Normal. absent: Fatigue, Weight Change, Fevers Eyes: Normal. absent: Vision Changes, Photophobia ENT: Normal. absent: Hearing Changes, Tinnitus, TMJ Pain Respiratory: SOB. absent: Cough, Sputum Cardiovascular: Chest Pain (L sided), Palpitations, BEVERLY Gastrointestinal: Normal. absent: Abdominal Pain, Diarrhea, Nausea, Vomiting Genitourinary Male: Normal. absent: Dysuria, Frequency, Hematuria Musculoskeletal: Normal. absent: Arthralgias, Back Pain, Neck Pain Skin: Normal. absent: Rash, Skin Lesions, Laceration Neurological: Normal. absent: Headache, Dizziness, Focal Weakness Endocrine: Normal. absent: Diaphoresis, Polyuria, Polydipsia Hemo/Lymphatic: Normal. absent: Easy Bleeding, Easy Bruising Psychiatric: Normal. absent: Anxiety, Depression Physical Exam Vital Signs Reviewed: Yes Temperature: Afebrile Blood Pressure: Hypertensive Pulse: Regular Respiratory Rate: Normal Appearance: Positive for: Well-Appearing, Non-Toxic, Comfortable Pain Distress: None Mental Status: Positive for: Alert and Oriented X 3 - Systems Exam Head: Present: Atraumatic, Normocephalic Pupils: Present: PERRL Extroacular Muscles: Present: EOMI Conjunctiva: Present: Normal Ears: Present: Normal, NORMAL TM. No: TM Bulging Mouth: Present: Moist Mucous Membranes Nose (External): Present: Atraumatic. No: Abrasion, Contusion Nose (Internal): Present: Normal Inspection, No Active Bleeding, Moist. No: Engorged Neck: Present: Normal Range of Motion. No: MIDLINE TENDERNESS, Paraspinal Tenderness Respiratory/Chest: Present: Clear to Auscultation, Good Air Exchange. No: Respiratory Distress, Accessory Muscle Use Cardiovascular: Present: Regular Rate and Rhythm, Normal S1, S2. No: Murmurs Abdomen: Present: Normal Bowel Sounds. No: Tenderness, Distention, Peritoneal Signs Back: Present: Normal Inspection Upper Extremity: Present: Normal Inspection. No: Cyanosis, Edema Lower Extremity: Present: Normal Inspection. No: Edema Neurological: Present: GCS=15, CN II-XII Intact, Speech Normal Skin: Present: Warm, Dry, Normal Color. No: Rashes Psychiatric: Present: Alert, Oriented x 3, Normal Insight, Normal Concentration Medical Decision Making ED Course and Treatment: Assessment 11/02/16 07:58 Impression: 66 M w PMHx specifically significant for HLD, HTN, AMI s/p stents 2003, and DM, presents with chest pain. Recent stress test was negative for acute disease Plan: -- Tropes X 2 -- EKG X 2 -- Portable CXR -- ASA -- CBC, CMP --Reassess Prior Visits: Notes and results from previous visits were reviewed. Pt recently had a pharmacologic stress test which was negative for any acute findings. Has an appointment set up for tomorrow with Reassessed 11/02/16 08:26 Pt still complaining of CP. Ordered another EKG stat, will d/w Dr. Meadows once tropes and EKG read (Vaughn Smallwood) 11/02/16 08:34 Patient Seen With Resident: Patient was seen and evaluated with resident. Came up with plan and treatment together. (Preet Guy) - Lab Interpretations Lab Results: 11/02/16 07:30 11/02/16 07:30 Lab Results 11/02/16 07:30: Sodium 140, Potassium 3.9, Chloride 101, Carbon Dioxide 26, Anion Gap 17, BUN 11, Creatinine 0.9, Est GFR ( Amer) > 60, Est GFR (Non- Af Amer) > 60, Random Glucose 124 H, Calcium 9.5, Total Bilirubin 0.8, AST 29, ALT 55, Alkaline Phosphatase 69, Troponin I < 0.01, Total Protein 7.1, Albumin 4.3, Globulin 2.7, Albumin/Globulin Ratio 1.6 11/02/16 07:30: WBC 8.8, RBC 4.61, Hgb 14.2, Hct 42.1, MCV 91.3, MCH 30.8, MCHC 33.7, RDW 13.5, Plt Count 248, MPV 9.4, Gran % 62.4, Lymph % (Auto) 27.8, [place] % (Auto) 6.8 H, Eos % (Auto) 2.7, Baso % (Auto) 0.3, Gran # 5.48, Lymph # 2.4, [place] # 0.6, Eos # 0.2, Baso # 0.03 - RAD Interpretation Radiology Orders: 11/02/16 07:31 CHEST PORTABLE [RAD] Stat - Medication Orders Current Medication Orders: Aspirin (Aspirin Chewable) 81 mg PO DAILY [facility] Last Admin: 11/02/16 10:01 Dose: Atenolol (Tenormin) 50 mg PO DAILY [facility] Last Admin: 11/02/16 10:02 Dose: 50 mg Atorvastatin Calcium (Lipitor) 40 mg PO DAILY [facility] Last Admin: 11/02/16 10:02 Dose: 40 mg Cholecalciferol (Vitamin D) 1,000 iu PO DAILY [facility] Last Admin: 11/02/16 10:02 Dose: 1,000 iu Clopidogrel Bisulfate (Plavix) 75 mg PO DAILY [facility] Last Admin: 11/02/16 10:01 Dose: 75 mg Losartan Potassium (Cozaar) 100 mg PO DAILY [facility] Last Admin: 11/02/16 10:01 Dose: 100 mg Ondansetron HCl (Zofran Tab) 4 mg PO Q6 [facility] Pantoprazole Sodium (Protonix Ec Tab) 40 mg PO DAILY [facility] Last Admin: 11/02/16 10:02 Dose: 40 mg Discontinued Medications Aspirin (Aspirin Chewable) 324 mg PO STAT STA Stop: 11/02/16 07:32 Last Admin: 11/02/16 07:37 Dose: 324 mg Disposition/Present on Arrival - Present on Arrival Any Indicators Present on Arrival: Yes History of DVT/PE: No History of Uncontrolled Diabetes: Yes Urinary Catheter: No History of Decub. Ulcer: No History Surgical Site Infection Following: None - Disposition Have Diagnosis and Disposition been Completed?: Yes Disposition Time: 09:00 - Disposition Diagnosis: Chest pain Disposition: HOSPITALIZED Patient Problems: Current Active Problems Problem Status Onset Chest pain Acute Condition: GUARDED
[2016-11-02 07:46] LABS: BASO # 0.03 K/mm3 (0.0-2.0); BASO % 0.3 % (0.0-3.0); EOS # 0.2 (0.0-0.7); EOS % 2.7 % (1.5-5.0); GRAN # 5.48 (1.4-6.5); GRAN % 62.4 % (50.0-68.0); HEMATOCRIT 42.1 % (42.0-52.0); LYMPH # 2.4 (1.2-3.4); LYMPH % 27.8 % (22.0-35.0); MEAN CELL VOLUME 91.3 fl (80.0-105.0); MEAN CORPUSCULAR HEMOGLOBIN 30.8 pg (25.0-35.0); MEAN CORPUSCULAR HGB CONC 33.7 g/dl (31.0-37.0); MEAN PLATELET VOLUME 9.4 fl (7.0-11.0); MONO # 0.6 (0.1-0.6); MONO % 6.8 % (1.0-6.0); RED CELL DISTRIBUTION WIDTH 13.5 % (11.5-14.5); WHITE BLOOD COUNT 8.8 10^3/ul (4.5-11.0)
[2016-11-02 08:00] LABS: BLOOD UREA NITROGEN 11 mg/dL (7-21); CALCIUM 9.5 mg/dL (8.4-10.5); CARBON DIOXIDE 26 mmol/L (21-33); CHLORIDE 101 mmol/L (98-107); GFR AFRICAN-AMERICAN > 60; GLUCOSE,RANDOM 124 mg/dL (70-110); POTASSIUM 3.9 mmol/L (3.6-5.0); SODIUM 140 mmol/L (132-148); TOTAL PROTEIN 7.1 g/dL (5.8-8.3)
[2016-11-02 08:01] LABS: ALB/GLOB RATIO 1.6 (1.1-1.8); ALKALINE PHOSPHATASE 69 U/L (38-133); ALT/SGPT 55 U/L (7-56); AST/SGOT 29 U/L (15-59); BILIRUBIN,TOTAL 0.8 mg/dL (0.2-1.3)
[2016-11-02 08:13] LABS: TROPONIN I < 0.01 ng/mL
--- NOTE | 2016-11-02 08:29 | RAD ---
HISTORY: chest pain COMPARISON: Portable chest 08/12/2016 FINDINGS: LUNGS: No active pulmonary disease. PLEURA: No significant pleural effusion identified, no pneumothorax apparent. CARDIOVASCULAR: No pulmonary derangement. Cardiac silhouette appears somewhat prominent which could be a function of technical magnification. OSSEOUS STRUCTURES: No significant abnormalities. VISUALIZED UPPER ABDOMEN: Normal. OTHER FINDINGS: None. IMPRESSION: No acute pulmonary disease is appreciable. Cardiac silhouette appears somewhat prominent without pulmonary vascular derangement however. This could be a function of technical magnification. Clinically correlate.
--- NOTE | 2016-11-02 09:26 | CARD ---
APPROVED REPORT EKG Measurement Heart [id number] <Conclusion> Normal sinus rhythm Minimal voltage criteria for LVH, may be normal variant Inferior infarct, age undetermined Abnormal ECG
[2016-11-02] MEDS: Pantoprazole 40 mg EC Tab PO SCH (10:02)
[2016-11-02 12:17] VITALS: RESP 18
--- NOTE | 2016-11-02 12:27 | CARD ---
APPROVED REPORT EKG Measurement Heart [id number] <Conclusion> Normal sinus rhythm Minimal voltage criteria for LVH, may be normal variant Inferior infarct, age undetermined Abnormal ECG
--- NOTE | 2016-11-02 12:43 | CP.PCM.HP ---
<Everette Garcia - Last Filed: 11/02/16 14:30> History of Present Illness - History of Present Illness History of Present Illness: This is a 66 yr old [place] male wit a significant past medical history of HLD, AMI s/p stents 2004, HTN, and DM who presents with a pressure, non radiating chest pain for approximately 10 hours prior to arrival. He reports the pain comes in goes in intensity and rates it about a 2/10. The patient reports walking makes the pain worse and laying on his side makes it better. The patient reports taking Atenolol last night after feeling palpitations. The patient took his blood pressure last night during the palpitations that read 162 /100. The patient reports waking up this morning feeling dizzy and having difficulty breathing. Patient reports taking a daily aspirin, however denies taking it while reporting the palpitations from last night and the dizziness this morning. Patient denies any nausea, vomiting, calf tenderness, loss of vision, change in vision, fevers, chills, or any other complaints at this time. Present on Admission - Present on Admission Any Indicators Present on Admission: No Review of Systems - Constitutional Constitutional: absent: Chills, Fever, Headache, Weight Gain, Weight Loss - EENT Eyes: absent: Blurred Vision, Change in Vision, Loss of Vision Nose/Mouth/Throat: absent: Dry Mouth, Dysphagia, Sore Throat - Cardiovascular Cardiovascular: As Per HPI - Respiratory Respiratory: As Per HPI - Gastrointestinal Gastrointestinal: absent: Abdominal Pain, Hematemesis, Hematochezia, Nausea, Vomiting - Genitourinary Genitourinary: absent: Difficulty Urinating, Urinary Incontinence, Urinary Urgency - Musculoskeletal Musculoskeletal: absent: Muscle Weakness, Neck Pain - Neurological Neurological: As Per HPI - Endocrine Endocrine: absent: Fatigue, Polydipsia, Polyphagia Past Patient History - Infectious Disease Hx of Infectious Diseases: None - Tetanus Immunizations Tetanus Immunization: Unknown - Past Medical History & Family History Past Medical History?: Yes - Past Social History Smoking Status: Former Smoker - CARDIAC Hx Hypertension: Yes - PULMONARY Hx Respiratory Disorders: No - NEUROLOGICAL Hx Vertigo: Yes - HEENT Hx HEENT Problems: No - RENAL Hx Kidney Stones: Yes - ENDOCRINE/METABOLIC Hx Diabetes Mellitus Type 2: Yes - HEMATOLOGICAL/ONCOLOGICAL Hx Blood Disorders: No - INTEGUMENTARY Hx Dermatological Problems: No - MUSCULOSKELETAL/RHEUMATOLOGICAL Hx Gout: Yes - GASTROINTESTINAL Hx Gastroesophageal Reflux: Yes - GENITOURINARY/GYNECOLOGICAL Hx Genitourinary Disorders: No - PSYCHIATRIC Hx Psychophysiologic Disorder: No Hx Substance Use: No - SURGICAL HISTORY Hx Angioplasty: Yes (stent x1 01/16/2004) Hx Appendectomy: Yes Hx Cholecystectomy: Yes Other/Comment: HEMORHOID Meds Allergies/Adverse Reactions: Allergies Allergy/AdvReac Type Severity Reaction Status Date / Time Penicillins Allergy RASH Verified 11/02/16 06:45 Physical Exam - Head Exam Head Exam: ATRAUMATIC, NORMAL INSPECTION, NORMOCEPHALIC - Eye Exam Eye Exam: EOMI, Normal appearance, PERRL. absent: Periorbital tenderness Pupil Exam: NORMAL ACCOMODATION. absent: Irregular - ENT Exam ENT Exam: Mucous Membranes Moist, Normal Oropharynx - Neck Exam Neck exam: Positive for: Normal Inspection. Negative for: Lymphadenopathy - Respiratory Exam Respiratory Exam: Clear to Auscultation Bilateral, NORMAL BREATHING PATTERN. absent: Accessory Muscle Use, Chest Wall Tenderness, Decreased Breath Sounds - Cardiovascular Exam Cardiovascular Exam: REGULAR RHYTHM, +S1, +S2. absent: JVD, RRR - GI/Abdominal Exam GI & Abdominal Exam: Normal Bowel Sounds. absent: Diminished Bowel Sounds, Firm , Guarding - Neurological Exam Neurological exam: Alert, CN II-XII Intact, Oriented x3 Results - Vital Signs Recent Vital Signs: Last Vital Signs Temp 98.6 F 11/02/16 12:16 Pulse 62 11/02/16 12:16 Resp 18 11/02/16 12:16 BP 124/88 11/02/16 12:16 Pulse Ox 98 11/02/16 09:18 - Labs Result Diagrams: 11/02/16 07:30 11/02/16 07:30 Assessment & Plan (1) Chest pain Assessment and Plan: ACS vs. Unstable angina Patient still reporting chest pain. Troponin (-) x1. Ordered Serial Troponins Once we have Troponins (-) x3 he can be discharged per Cardiology. Stress test findings done on September 19, 2016 are chronic in nature per Cardiology. Ordered Lipid Panel. EKG: showed sinus rhythm, no axis deviation, with no acute ST changes in inferior, septal, anterior leads. C/w atenolol, aspirin, and zofran. Status: Acute - Assessment and Plan (Free Text) Assessment: HLD -Lipid panel: Triglycerides (111), Cholesterol (96), LDL (53), HDL( 32) -c/w Lipitor, Vitamin D GI PPX -C/W Protonix <Pedro Pablo SEGAL,Janet - Last Filed: 11/05/16 10:34> Results - Vital Signs Recent Vital Signs: Last Vital Signs Temp 98.2 F 11/03/16 11:23 Pulse 52 L 11/03/16 11:23 Resp 18 11/03/16 11:23 BP 104/64 11/03/16 11:23 Pulse Ox 98 11/02/16 09:18 - Labs Result Diagrams: 11/03/16 08:50 11/03/16 08:50 Attending/Attestation - Attestation I have personally seen and examined this patient.: Yes I have fully participated in the care of the patient.: Yes I have reviewed all pertinent clinical information: Yes Notes (Text): 11/05/16 10:32 Patient was seen and examined with medical referral coordinator. Agreed with resident assessment and plan. 66 M with PMH of DM/HTN , recent stress test was admitted with chest pain .EKG is negative for acute ischemic changes.Patient is pain free.He had recent nuclear stress test.Patient was evaluated by cardiology and Stress test finding were discussed with cardiology , there is no acute ischemia on stress test, has old infarction.We will monitor patient in telemetry and if 3 troponis are normal and he remains pain free, he can be discharged home with follow up with PCP and cardiology. Management plan was discussed in detail with patient Education was provided.
[2016-11-02 13:41] LABS: CHOLESTEROL 96 mg/dL (130-200)
[2016-11-02 13:56] LABS: TROPONIN I < 0.01 ng/mL
[2016-11-02 18:29] VITALS: BMI 29.2
[2016-11-02] MEDS ORDERED: Pneumococcal 23-Valent Vaccine IM ONE (18:30)
--- NOTE | 2016-11-03 00:58 | CON ---
DATE: 11/02/2016 REQUESTING PHYSICIAN: Dr. Chamorro. REASON FOR CONSULTATION: Chest discomfort and diaphoresis. HISTORY OF PRESENT ILLNESS: This is a 66-year-old [place] male with a history of a prior inferior wall myocardial infarction and PCI of his RCA in 2003, who presented with complaints of retrosternal chest discomfort which waxed and waned throughout the day. He states that when walking, he became somewhat short of breath and fatigued and also became diaphoretic and had palpitations. He felt lightheaded but had no loss of consciousness. He presented to the emergency room for evaluation. His initial electrocardiogram showed evidence of remote infarct pattern with no other acute abnormalities. His cardiac enzymes have thus far been negative. He was admitted last month with chest discomfort and a stress test was performed showing evidence of an inferior infarct pattern and no residual ischemia. PAST MEDICAL HISTORY: His past history is notable for the problems mentioned above. He does have a history of hypertension, hyperlipidemia, diabetes, and gout. A prior appendectomy and a prior cholecystectomy. He also has a history of gastroesophageal reflux disease. ALLERGIES: HE HAS HAD REACTION TO PENICILLIN IN THE PAST. MEDICATIONS AT HOME: Include aspirin, atenolol 50 mg daily, losartan 100 mg daily, Crestor 10 mg daily, Glucophage 500 mg b.i.d., Plavix 75 mg daily, Protonix 40 mg daily, and Zyloprim. SOCIAL HISTORY: The patient is a former smoker, having quit in 1989. FAMILY HISTORY: Both parents are from age-related illness. REVIEW OF SYSTEMS: A 10-point review of systems is notable mainly for the problems mentioned above. PHYSICAL EXAMINATION: GENERAL: He is a middle-aged male, who appears comfortable at the present time. VITAL SIGNS: His blood pressure is 126/70, the pulse is 60 and sinus, and respirations are 14. He is afebrile. HEENT: Normocephalic and atraumatic. NECK: Supple. No JVD noted. CHEST: Diffuse scattered rhonchi heard. HEART: PMI is in normal position. No pathologic murmur or gallops are noted. ABDOMEN: Soft and nontender. Normoactive bowel sounds. EXTREMITIES: No clubbing, cyanosis, or edema. SKIN: Warm and dry. PSYCHIATRIC: Normal mood and affect. NEUROLOGIC: Alert and oriented x3. No gross motor or sensory is appreciable. DIAGNOSTIC DATA: Potassium is 3.9. BUN and creatinine are 11 and 0.9, glucose is 124. White count 8.8, hemoglobin and hematocrit 14.2 and 42.1 with platelet count 248,000. Two sets of cardiac enzymes are normal. Cholesterol is 96 with LDL 53, HDL 32, and triglycerides 111. Electrocardiogram reveals sinus rhythm with voltage criteria for LVH, prior inferior wall myocardial infarction, and nonspecific ST-T abnormalities. Chest x-ray reveals normal cardiac silhouette with clear lung freedman. IMPRESSION: 1. Chest discomfort appears somewhat atypical for angina. 2. Labile blood pressure and diaphoresis, exact etiology unclear. 3. Known coronary artery disease, status post remote myocardial infarction and percutaneous coronary intervention with recent stress test showing no evidence of ischemia and moderately reduced left ventricular systolic function. 4. Multiple cardiac risk factors. RECOMMENDATIONS: If his third set of cardiac enzymes are negative and his blood pressure remains stable, discharge home would be reasonable. If he has recurrent symptoms, repeat catheterization would be an order. His current medications should be continued and he was instructed to call with any recurrence of symptoms. Thank you for this consultation. Iglesia Lockett MD
--- NOTE | 2016-11-03 08:35 | CP.PCM.PN ---
<JoseMaddien - Last Filed: 11/03/16 08:32> Subjective - Date & Time of Evaluation Date of Evaluation: 11/03/16 Time of Evaluation: 08:33 - Subjective Subjective: This is a 66 yr old male who was seen at bedside resting comfortably. The patient reports decrease in the chest pain he was having yesterday and now rates it a 4/10. The patient denies any dizziness, lightheadedness, nausea, vomiting, shortness of breath, extremity weakness, changes in vision, changes in bowel habits, changes in urination, or any other complaints. Objective - Vital Signs/Intake and Output Vital Signs (last 24 hours): Temp Pulse Resp BP Pulse Ox 98.6 F 51 L 18 124/88 98 11/02/16 18:10 11/03/16 06:00 11/02/16 18:10 11/02/16 18:10 11/02/16 09:18 Intake and Output: 11/03/16 11/03/16 06:59 18:59 Intake Total 300 Output Total 400 Balance -100 - Medications Medications: Current Medications Aspirin (Aspirin Chewable) 81 mg PO DAILY [facility] Last Admin: 11/02/16 10:01 Dose: Not Given Atenolol (Tenormin) 50 mg PO DAILY [facility] Last Admin: 11/02/16 10:02 Dose: 50 mg Atorvastatin Calcium (Lipitor) 40 mg PO DAILY [facility] Last Admin: 11/02/16 10:02 Dose: 40 mg Cholecalciferol (Vitamin D) 1,000 iu PO DAILY [facility] Last Admin: 11/02/16 10:02 Dose: 1,000 iu Clopidogrel Bisulfate (Plavix) 75 mg PO DAILY [facility] Last Admin: 11/02/16 10:01 Dose: 75 mg Losartan Potassium (Cozaar) 100 mg PO DAILY [facility] Last Admin: 11/02/16 10:01 Dose: 100 mg Ondansetron HCl (Zofran Tab) 4 mg PO Q6 [facility] Last Admin: 11/03/16 05:13 Dose: Not Given Pantoprazole Sodium (Protonix Ec Tab) 40 mg PO DAILY [facility] Last Admin: 11/02/16 10:02 Dose: 40 mg - Constitutional Appears: Well, Non-toxic, No Acute Distress - Head Exam Head Exam: ATRAUMATIC, NORMAL INSPECTION, NORMOCEPHALIC - Eye Exam Eye Exam: EOMI, Normal appearance, PERRL. absent: Periorbital tenderness Pupil Exam: NORMAL ACCOMODATION, PERRL. absent: Irregular - ENT Exam ENT Exam: Mucous Membranes Moist, Normal Exam. absent: Normal Oropharynx - Neck Exam Neck Exam: Normal Inspection. absent: Tenderness - Respiratory Exam Respiratory Exam: Clear to Ausculation Bilateral, NORMAL BREATHING PATTERN. absent: Accessory Muscle Use, Rales, Rhonchi - Cardiovascular Exam Cardiovascular Exam: REGULAR RHYTHM, +S1, +S2. absent: JVD, Rubs - GI/Abdominal Exam GI & Abdominal Exam: Soft, Normal Bowel Sounds. absent: Rigid, Tenderness - Extremities Exam Extremities Exam: Full ROM, Normal Inspection. absent: Normal Capillary Refill - Back Exam Back Exam: NORMAL INSPECTION. absent: paraspinal tenderness - Psychiatric Exam Psychiatric exam: Normal Affect - Skin Skin Exam: Dry, Intact, Normal Color. absent: Rash, Urticaria Assessment and Plan (1) Chest pain Assessment & Plan: Patient currently reporting no chest pain. Currently Troponin(-)x2. Patient can be discharged upon the next negative Troponin per Cardiology Consult. Patient should f/u with Cardiology as outpatient for Cardiac Cath. Status: Acute <López Mon - Last Filed: 11/04/16 16:58> Objective - Vital Signs/Intake and Output Vital Signs (last 24 hours): Temp Pulse Resp BP Pulse Ox 98.2 F 52 L 18 104/64 98 11/03/16 11:23 11/03/16 11:23 11/03/16 11:23 11/03/16 11:23 11/02/16 09:18 - Labs Labs: 11/03/16 08:50 11/03/16 08:50 Attending/Attestation - Attestation I have personally seen and examined this patient.: Yes I have fully participated in the care of the patient.: Yes I have reviewed all pertinent clinical information, including history, physical exam and plan: Yes Notes (Text): 11/04/16 16:57 attending note; Patient seen and examined with resident. Patient is a 66-year-old male admitted with chest pain. Cardiac enzymes 3 negative. Cardiology evaluation appreciated. Patient will be discharged home with [place] [facility] [place] Medication refilled. Diagnosis; Chest pain CAD with stent placement
[2016-11-03 09:13] LABS: BASO # 0.04 K/mm3 (0.0-2.0); BASO % 0.5 % (0.0-3.0); EOS # 0.3 (0.0-0.7); EOS % 3.2 % (1.5-5.0); GRAN # 5.41 (1.4-6.5); GRAN % 64.9 % (50.0-68.0); LYMPH # 2.1 (1.2-3.4); LYMPH % 25.1 % (22.0-35.0); MEAN CORPUSCULAR HEMOGLOBIN 30.7 pg (25.0-35.0); MEAN PLATELET VOLUME 9.3 fl (7.0-11.0); MONO # 0.5 (0.1-0.6); MONO % 6.3 % (1.0-6.0); RED CELL DISTRIBUTION WIDTH 13.5 % (11.5-14.5); WHITE BLOOD COUNT 8.4 10^3/ul (4.5-11.0)
[2016-11-03 09:14] LABS: ALB/GLOB RATIO 1.6 (1.1-1.8); ALKALINE PHOSPHATASE 58 U/L (38-133); ALT/SGPT 57 U/L (7-56); AST/SGOT 32 U/L (15-59); BILIRUBIN,TOTAL 1.2 mg/dL (0.2-1.3); BLOOD UREA NITROGEN 11 mg/dL (7-21); CALCIUM 9.3 mg/dL (8.4-10.5); CARBON DIOXIDE 29 mmol/L (21-33); CHLORIDE 99 mmol/L (98-107); GFR AFRICAN-AMERICAN > 60; GLUCOSE,RANDOM 182 mg/dL (70-110); SODIUM 138 mmol/L (132-148); TOTAL PROTEIN 7.1 g/dL (5.8-8.3)
[2016-11-03] MEDS: Pantoprazole 40 mg EC Tab PO SCH (09:16)
[2016-11-03 09:20] LABS: POTASSIUM 4.2 mmol/L (3.6-5.0)
[2016-11-03 11:23] VITALS: BP 104/64; PULSE 52; TEMP 98.2
[2016-11-03] MEDS ORDERED: Insulin Reg-LOW-Coverage SC SCH (11:30)
--- NOTE | 2016-11-03 13:44 | PN ---
SUBJECTIVE: The patient is seen lying in bed on telemetry. He denies any chest pain or dyspnea. He has had no recurrent lightheadedness or diaphoresis. His cardiac enzymes remained negative. CURRENT MEDICATIONS: Included aspirin 81 mg daily, Cozaar 100 mg daily, Lipitor 40 mg daily, Plavix 75 mg daily, Protonix 40 mg daily, Tenormin 50 mg daily. OBJECTIVE: GENERAL: He is middle-age man who appears comfortable at rest. VITAL SIGNS: His blood pressure is 120/78 with a pulse of 60, respirations are 14. He is in sinus rhythm and he is afebrile. HEENT: No JVD. CHEST: Few scattered rhonchi. HEART: PMI normal position. No pathological murmurs or gallops noted. ABDOMEN: Soft and nontender. Normoactive bowel sounds. EXTREMITIES: No edema. SKIN: Warm and dry. PSYCHIATRIC: Normal mood and affect. DIAGNOSTIC DATA: Potassium is 4.2. BUN and creatinine are 11 and 1.1, glucose is 182. Troponin is negative. Hemoglobin and hematocrit 14.5 and 44.0 with platelet count of 227,000, white count is 8.4. IMPRESSION: 1. Recent chest pain and diaphoresis with no evidence of cardiac ischemia by electrocardiogram and no evidence of cardiac injury by enzymes. 2. Known coronary artery disease, status post remote myocardial infarction and percutaneous coronary intervention with recent stress test showing no evidence of ischemia and fixed inferior defect consistent with prior infarct. 3. Multiple cardiac risk factors. RECOMMENDATIONS: From cardiac standpoint, he appears stable for discharge home at this time. If he has recurrent chest pain, consideration should be given to cardiac catheterization for definitive assessment of his coronary anatomy. In the interim, aggressive risk factor control should be continued. We will be happy to follow along as needed. Iglesia Lockett MD
--- NOTE | 2016-11-03 14:35 | CP.PCM.DIS ---
<Everette Garcia - Last Filed: 11/03/16 14:40> Provider - Provider Date of Admission: 11/02/16 08:58 Attending physician: López Mon MD Time Spent in preparation of Discharge (in minutes): 55 Diagnosis - Discharge Diagnosis (1) Chest pain Status: Acute Hospital Course - Lab Results Lab Results: Most Recent Lab Values WBC 8.4 10^3/ul (4.5-11.0) 11/03/16 08:50 RBC 4.73 10^6/uL (3.5-6.1) 11/03/16 08:50 Hgb 14.5 g/dL (14.0-18.0) 11/03/16 08:50 Hct 44.0 % (42.0-52.0) 11/03/16 08:50 MCV 93.0 fl (80.0-105.0) 11/03/16 08:50 MCH 30.7 pg (25.0-35.0) 11/03/16 08:50 MCHC 33.0 g/dl (31.0-37.0) 11/03/16 08:50 RDW 13.5 % (11.5-14.5) 11/03/16 08:50 Plt Count 227 10^3/uL (120.0-450.0) 11/03/16 08:50 MPV 9.3 fl (7.0-11.0) 11/03/16 08:50 Gran % 64.9 % (50.0-68.0) 11/03/16 08:50 Lymph % (Auto) 25.1 % (22.0-35.0) 11/03/16 08:50 Parker % (Auto) 6.3 % (1.0-6.0) H 11/03/16 08:50 Eos % (Auto) 3.2 % (1.5-5.0) 11/03/16 08:50 Baso % (Auto) 0.5 % (0.0-3.0) 11/03/16 08:50 Gran # 5.41 (1.4-6.5) 11/03/16 08:50 Lymph # 2.1 (1.2-3.4) 11/03/16 08:50 Parker # 0.5 (0.1-0.6) 11/03/16 08:50 Eos # 0.3 (0.0-0.7) 11/03/16 08:50 Baso # 0.04 K/mm3 (0.0-2.0) 11/03/16 08:50 Sodium 138 mmol/L (132-148) 11/03/16 08:50 Potassium 4.2 mmol/L (3.6-5.0) 11/03/16 08:50 Chloride 99 mmol/L (98-107) 11/03/16 08:50 Carbon Dioxide 29 mmol/L (21-33) 11/03/16 08:50 Anion Gap 14 (10-20) 11/03/16 08:50 BUN 11 mg/dL (7-21) 11/03/16 08:50 Creatinine 1.1 mg/dL (0.5-1.4) 11/03/16 08:50 Est GFR ( Amer) > 60 11/03/16 08:50 Est GFR (Non-Af Amer) > 60 11/03/16 08:50 POC Glucose (mg/dL) 124 mg/dL (65-110) H 11/03/16 11:01 Random Glucose 182 mg/dL (70-110) H 11/03/16 08:50 Calcium 9.3 mg/dL (8.4-10.5) 11/03/16 08:50 Total Bilirubin 1.2 mg/dL (0.2-1.3) 11/03/16 08:50 AST 32 U/L (15-59) 11/03/16 08:50 ALT 57 U/L (7-56) H 11/03/16 08:50 Alkaline Phosphatase 58 U/L (38-133) 11/03/16 08:50 Troponin I < 0.01 ng/mL 11/03/16 09:00 Total Protein 7.1 g/dL (5.8-8.3) 11/03/16 08:50 Albumin 4.4 g/dL (3.0-4.8) 11/03/16 08:50 Globulin 2.7 gm/dL 11/03/16 08:50 Albumin/Globulin Ratio 1.6 (1.1-1.8) 11/03/16 08:50 Triglycerides 111 mg/dL (35-160) 11/02/16 13:15 Cholesterol 96 mg/dL (130-200) L 11/02/16 13:15 LDL Cholesterol Direct 53 mg/dL (0-129) 11/02/16 13:15 HDL Cholesterol 32 mg/dL (29-60) 11/02/16 13:15 - Hospital Course Hospital Course: This is a 66 yr. old male with a past medical history of AMI s/p 2003, HLD, HTN , DM, who presented to emergency department with pressure, non radiating chest pain for approximately 10 hours before arriving. He was given pain medications and aspirin and insulin. Patient had blood drawn which included troponins and a lipid panel. Patient had cardio consult which was done on 11/03 and they cleared him to be discharged today and to follow up with his primary care doctor. The also advised a possible cardiac cath to be done as an outpatient. Discharge Exam - Head Exam Head Exam: ATRAUMATIC, NORMAL INSPECTION, NORMOCEPHALIC - Eye Exam Eye Exam: EOMI, Normal appearance, PERRL. absent: Periorbital tenderness Pupil Exam: NORMAL ACCOMODATION, PERRL. absent: Irregular - ENT Exam ENT Exam: Mucous Membranes Moist - Respiratory Exam Respiratory Exam: Clear to PA & Lateral, NORMAL BREATHING PATTERN, UNREMARKABLE. absent: Accessory Muscle Use, Chest Wall Tenderness, Rhonchi, Wheezes - Cardiovascular Exam Cardiovascular Exam: REGULAR RHYTHM, +S1, +S2. absent: Rubs - GI/Abdominal Exam GI & Abdominal Exam: Normal Bowel Sounds, Soft, Unremarkable. absent: Rebound, Rigid - Back Exam Back exam: NORMAL INSPECTION. absent: paraspinal tenderness - Neurological Exam Neurological exam: Alert, CN II-XII Intact, Oriented x3 - Skin Skin Exam: Dry, Intact, Normal Color Discharge Plan - Follow Up Plan Condition: GUARDED Disposition: HOME/ ROUTINE Instructions: Angina (DC), Chest Pain (DC), Costochondritis (DC), Noncardiac Chest Pain (DC) Additional Instructions: Discharge instructions: - follow up with [facility] tomorrow nov 04 - follow up with legal intern -Patient meds were called in to the pharmacy downstairs and delivered to him. -patient is to return to [facility] for any new or worsening symptoms. Referrals: [facility], [Non-Staff] - <López Mon - Last Filed: 11/04/16 16:59> Provider - Provider Date of Admission: 11/02/16 08:58 Attending physician: López Mon MD Hospital Course - Lab Results Lab Results: Most Recent Lab Values WBC 8.4 10^3/ul (4.5-11.0) 11/03/16 08:50 RBC 4.73 10^6/uL (3.5-6.1) 11/03/16 08:50 Hgb 14.5 g/dL (14.0-18.0) 11/03/16 08:50 Hct 44.0 % (42.0-52.0) 11/03/16 08:50 MCV 93.0 fl (80.0-105.0) 11/03/16 08:50 MCH 30.7 pg (25.0-35.0) 11/03/16 08:50 MCHC 33.0 g/dl (31.0-37.0) 11/03/16 08:50 RDW 13.5 % (11.5-14.5) 11/03/16 08:50 Plt Count 227 10^3/uL (120.0-450.0) 11/03/16 08:50 MPV 9.3 fl (7.0-11.0) 11/03/16 08:50 Gran % 64.9 % (50.0-68.0) 11/03/16 08:50 Lymph % (Auto) 25.1 % (22.0-35.0) 11/03/16 08:50 Parker % (Auto) 6.3 % (1.0-6.0) H 11/03/16 08:50 Eos % (Auto) 3.2 % (1.5-5.0) 11/03/16 08:50 Baso % (Auto) 0.5 % (0.0-3.0) 11/03/16 08:50 Gran # 5.41 (1.4-6.5) 11/03/16 08:50 Lymph # 2.1 (1.2-3.4) 11/03/16 08:50 Parker # 0.5 (0.1-0.6) 11/03/16 08:50 Eos # 0.3 (0.0-0.7) 11/03/16 08:50 Baso # 0.04 K/mm3 (0.0-2.0) 11/03/16 08:50 Sodium 138 mmol/L (132-148) 11/03/16 08:50 Potassium 4.2 mmol/L (3.6-5.0) 11/03/16 08:50 Chloride 99 mmol/L (98-107) 11/03/16 08:50 Carbon Dioxide 29 mmol/L (21-33) 11/03/16 08:50 Anion Gap 14 (10-20) 11/03/16 08:50 BUN 11 mg/dL (7-21) 11/03/16 08:50 Creatinine 1.1 mg/dL (0.5-1.4) 11/03/16 08:50 Est GFR ( Amer) > 60 11/03/16 08:50 Est GFR (Non-Af Amer) > 60 11/03/16 08:50 POC Glucose (mg/dL) 124 mg/dL (65-110) H 11/03/16 11:01 Random Glucose 182 mg/dL (70-110) H 11/03/16 08:50 Calcium 9.3 mg/dL (8.4-10.5) 11/03/16 08:50 Total Bilirubin 1.2 mg/dL (0.2-1.3) 11/03/16 08:50 AST 32 U/L (15-59) 11/03/16 08:50 ALT 57 U/L (7-56) H 11/03/16 08:50 Alkaline Phosphatase 58 U/L (38-133) 11/03/16 08:50 Troponin I < 0.01 ng/mL 11/03/16 09:00 Total Protein 7.1 g/dL (5.8-8.3) 11/03/16 08:50 Albumin 4.4 g/dL (3.0-4.8) 11/03/16 08:50 Globulin 2.7 gm/dL 11/03/16 08:50 Albumin/Globulin Ratio 1.6 (1.1-1.8) 11/03/16 08:50 Triglycerides 111 mg/dL (35-160) 11/02/16 13:15 Cholesterol 96 mg/dL (130-200) L 11/02/16 13:15 LDL Cholesterol Direct 53 mg/dL (0-129) 11/02/16 13:15 HDL Cholesterol 32 mg/dL (29-60) 11/02/16 13:15 Attending/Attestation - Attestation I have personally seen and examined this patient.: Yes I have fully participated in the care of the patient.: Yes I have reviewed all pertinent clinical information, including history, physical exam and plan: Yes Notes (Text): 11/04/16 16:59 Attending note; Patient seen and examined with resident. Patient is a 66-year-old male admitted with chest pain. Cardiac enzymes 3 negative. Cardiology evaluation appreciated. Patient will be discharged home with close follow-up with [facility] [place]. patient will be referred to outpatient cardiac clinic. Diagnosis; Chest pain CAD with stent placement hypertension 11/04/16 16:59
== END 2016-11-03 15:13 | disposition home or self-care (01) ==
LOC: ED 06:35 → ERH 08:58 → 2RNO 09:46
PROVIDERS: ADMIT Internal Medicine; ATTEND Internal Medicine
DX: R07.89 Other chest pain (principal); I10 Essential (primary) hypertension; E78.5 Hyperlipidemia, unspecified; E11.9 Type 2 diabetes mellitus without complications; I25.10 Atherosclerotic heart disease of native coronary artery without angina pectoris; M10.9 Gout, unspecified; K21.9 Gastro-esophageal reflux disease without esophagitis; I25.2 Old myocardial infarction; Z87.891 Personal history of nicotine dependence; Z79.84 Long term (current) use of oral hypoglycemic drugs; Z79.02 Long term (current) use of antithrombotics/antiplatelets; Z95.5 Presence of coronary angioplasty implant and graft; Z88.0 Allergy status to penicillin
CPT/HCPCS: 36415; 71010; 80053; 80061; 82948; 84484; 85025; 93005; 99285; G0378

== ENCOUNTER 2016-12-27 10:41 | Emergency (ER) | payer OTHER ==
[2016-12-27 10:49] VITALS: BMI 25.7
[2016-12-27 10:53] VITALS: TEMP 97.8
[2016-12-27] MEDS ORDERED: Sodium Chloride 0.9% 1,000 ML IV STA (11:08)
[2016-12-27 11:14] LABS: PH,URINE 5.5 (4.7-8.0); URINE BILIRUBIN NEGATIVE (NEGATIVE); URINE BLOOD LARGE (NEGATIVE); URINE GLUCOSE (UA) 250 mg/dL (NEGATIVE); URINE KETONE TRACE mg/dL (NEGATIVE); URINE LEUKOCYTE ESTERASE TRACE Leu/uL (NEGATIVE); URINE PROTEIN TRACE mg/dL (<30 mg/dL); URINE UROBILINOGEN 0.2 E.U./dL (<1 E.U./dL)
[2016-12-27 11:15] LABS: URINE APPEARANCE CLEAR (CLEAR); URINE COLOR YELLOW (YELLOW)
[2016-12-27 11:23] LABS: URINE BACTERIA FEW (NEG)
[2016-12-27 11:29] LABS: BASO # 0.03 K/mm3 (0.0-2.0); BASO % 0.4 % (0.0-3.0); EOS # 0.3 (0.0-0.7); EOS % 3.5 % (1.5-5.0); GRAN # 5.24 (1.4-6.5); GRAN % 68.8 % (50.0-68.0); HEMATOCRIT 43.2 % (42.0-52.0); LYMPH # 1.4 (1.2-3.4); MEAN CELL VOLUME 92.3 fl (80.0-105.0); MEAN CORPUSCULAR HEMOGLOBIN 31.4 pg (25.0-35.0); MEAN PLATELET VOLUME 9.1 fl (7.0-11.0); MONO # 0.7 (0.1-0.6); MONO % 9.3 % (1.0-6.0); RED CELL DISTRIBUTION WIDTH 13.4 % (11.5-14.5); WHITE BLOOD COUNT 7.6 10^3/ul (4.5-11.0)
--- NOTE | 2016-12-27 11:30 | ED PDOC ---
Arrival/HPI - General Chief Complaint: Back Pain Time Seen by Provider: 12/27/16 10:52 Historian: Patient - History of Present Illness Narrative History of Present Illness (Text): 12/27/16 11:30 A 66 year old male, whose past medical history includes hypertension, presents to the emergency department for right lower back pain which radiates to his RLQ. The patient reports that when he went to use the bathroom this morning he has a sharp pain while urinating. He also notes a blister rash down the right side of his leg. The patient denies any chest pain, shortness of breath, fever, or any other complaints at this time. Time/Duration: 24 hours Symptom Onset: Sudden Symptom Course: Unchanged Activities at Onset: Light Context: Home Past Medical History - Provider Review Nursing Documentation Reviewed: Yes - Infectious Disease Hx of Infectious Diseases: None - Tetanus Immunization Tetanus Immunization: Unknown - Cardiac Hx Cardiac Disorders: Yes Hx Hypertension: Yes Other/Comment: stent in heart - Pulmonary Hx Respiratory Disorders: No - Neurological Hx Neurological Disorder: Yes Hx Vertigo: Yes - HEENT Hx HEENT Disorder: No - Renal Hx Renal Disorder: Yes Hx Kidney Stones: Yes - Endocrine/Metabolic Hx Endocrine Disorders: Yes Hx Diabetes Mellitus Type 2: Yes - Hematological/Oncological Hx Blood Disorders: No - Integumentary Hx Dermatological Disorder: No - Musculoskeletal/Rheumatological Hx Falls: No Hx Gout: Yes (left great toe/r ankle) Other/Comment: left great toe gout pain started 3 wks ago constant ache painscale 05/07, had gout in r ankle 1999 - Gastrointestinal Hx Gastrointestinal Disorders: Yes Hx Gastroesophageal Reflux: Yes - Genitourinary/Gynecological Hx Genitourinary Disorders: No - Psychiatric Hx Psychophysiologic Disorder: No Hx Substance Use: No - Surgical History Hx Appendectomy: Yes Hx Cardiac Catheterization: Yes (stent) Hx Cholecystectomy: Yes Hx Coronary Stent: Yes (angiioplasty stent x1 01/16/2004) Other/Comment: HEMORHOID - Anesthesia Hx Anesthesia: Yes Hx Anesthesia Reactions: No Family/Social History - Physician Review Nursing Documentation Reviewed: Yes Family/Social History: No Known Family HX Smoking Status: Former Smoker Hx Alcohol Use: No Hx Substance Use: No Allergies/Home Meds Allergies/Adverse Reactions: Allergies Penicillins Allergy (Verified 12/27/16 10:49) RASH Home Medications: Home Meds Medication Instructions Recorded Confirmed Allopurinol [Zyloprim] 100 mg PO PRN PRN 08/12/16 12/27/16 Cholecalciferol [Vitamin D 1000 IU] 1 tab PO DAILY 08/12/16 12/27/16 MetFORMIN [glucoPHAGE] 500 tab PO BID 08/12/16 12/27/16 Pantoprazole [Protonix EC Tab] 40 mg PO DAILY 08/12/16 12/27/16 Review of Systems - Physician Review All systems were reviewed & negative as marked: Yes - Review of Systems Constitutional: absent: Fevers Respiratory: absent: SOB Cardiovascular: absent: Chest Pain Gastrointestinal: Abdominal Pain (RLQ ) Genitourinary Male: Dysuria Musculoskeletal: Back Pain (right lower back pain ) Skin: Rash (band from right lower lumbar down right knee) Physical Exam Vital Signs Reviewed: Yes Vital Signs Temp Pulse Resp BP Pulse Ox 12/27/16 12:32 66 16 132/73 96 12/27/16 10:52 97.8 F 93 H 18 137/86 97 Temperature: Afebrile Blood Pressure: Hypertensive Pulse: Regular Respiratory Rate: Normal Appearance: Positive for: Well-Appearing, Non-Toxic, Comfortable Pain Distress: None Mental Status: Positive for: Alert and Oriented X 3 - Systems Exam Head: Present: Atraumatic, Normocephalic Pupils: Present: PERRL Extroacular Muscles: Present: EOMI Conjunctiva: Present: Normal Mouth: Present: Moist Mucous Membranes Neck: Present: Normal Range of Motion Respiratory/Chest: Present: Clear to Auscultation, Good Air Exchange. No: Respiratory Distress, Accessory Muscle Use Cardiovascular: Present: Regular Rate and Rhythm, Normal S1, S2. No: Murmurs Abdomen: Present: Normal Bowel Sounds. No: Tenderness, Distention, Peritoneal Signs Back: Present: Other (right flank pain ) Upper Extremity: Present: Normal Inspection. No: Cyanosis, Edema Skin: Present: Rashes (vasicular appearing rash in a dermatomal pattern starting from lower lumbar down the right knee) Medical Decision Making ED Course and Treatment: 12/27/16 11:40 Impression: 66 year old male with right lower back pain. Differential Diagnosis included but are not limited to: ro uti/pyelo , renal stone . pt also with shingles. Plan: -- Abd & Pelvis CT -- Labs -- IV Fluids -- Reassess and disposition Progress Notes: 12/27/16 12:37 pt reassessed sleeping in nad. discussed results of ua with pt and advised outpt fu with urology. labs unremarkable. will dc with outpt follow up and return precautions. lfts baseline 12/27/16 12:39 - Lab Interpretations Lab Results: 12/27/16 11:24 12/27/16 11:24 Lab Results 12/27/16 11:24: Sodium 136, Potassium 4.0, Chloride 98, Carbon Dioxide 26, Anion Gap 16, BUN 10, Creatinine 1.0, Est GFR ( Amer) > 60, Est GFR (Non- Af Amer) > 60, Random Glucose 221 H, Calcium 9.4, Total Bilirubin 0.6, AST 66 H , ALT 77 H, Alkaline Phosphatase 80, Total Protein 7.4, Albumin 4.5, Globulin 2.9, Albumin/Globulin Ratio 1.6, Lipase 147 12/27/16 11:24: PT 11.9, INR 1.08, APTT 30.0 12/27/16 11:24: WBC 7.6, RBC 4.68, Hgb 14.7, Hct 43.2, MCV 92.3, MCH 31.4, MCHC 34.0, RDW 13.4, Plt Count 222, MPV 9.1, Gran % 68.8 H, Lymph % (Auto) 18.0 L, [place] % (Auto) 9.3 H, Eos % (Auto) 3.5, Baso % (Auto) 0.4, Gran # 5.24, Lymph # 1.4, [place] # 0.7 H, Eos # 0.3, Baso # 0.03 12/27/16 11:00: Urine Color Yellow, Urine Appearance Clear, Urine pH 5.5, Ur Specific [place] 1.025, Urine Protein Trace H, Urine Glucose (UA) 250 H, Urine Ketones Trace H, Urine Blood Large H, Urine Nitrate Negative, Urine Bilirubin Negative, Urine Urobilinogen 0.2, Ur Leukocyte Esterase Trace H, Urine RBC 5 - 10, Urine WBC 1 - 3, Ur Epithelial Cells 1 - 3, Urine Bacteria Few - RAD Interpretation Radiology Orders: 12/27/16 11:07 ABD & PELVIS W/O PO OR IV CONT [CT] Stat - Medication Orders Current Medication Orders: Discontinued Medications Acyclovir (Zovirax) 800 mg PO STAT STA PRN Reason: Protocol Stop: 12/27/16 12:35 Last Admin: 12/27/16 12:41 Dose: 800 mg Sodium Chloride (Sodium Chloride 0.9%) 1,000 mls @ 999 mls/hr IV .Q1H1M STA Stop: 12/27/16 12:08 Last Admin: 12/27/16 11:20 Dose: 999 mls/hr eMAR Start Stop Document 12/27/16 11:20 CNR (Rec: 12/27/16 11:20 CNR [id number] Intravenous Solution Start Date 12/27/16 Start Time 11:20 - Scribe Statement The provider has reviewed the documentation as recorded by the Scribe Joy Sue Provider Scribe Attestation: All medical record entries made by the Scribe were at my direction and personally dictated by me. I have reviewed the chart and agree that the record accurately reflects my personal performance of the history, physical exam, medical decision making, and the department course for this patient. I have also personally directed, reviewed, and agree with the discharge instructions and disposition. Disposition/Present on Arrival - Present on Arrival Any Indicators Present on Arrival: No History of DVT/PE: No History of Uncontrolled Diabetes: No Urinary Catheter: No History of Decub. Ulcer: No History Surgical Site Infection Following: None - Disposition Have Diagnosis and Disposition been Completed?: Yes Diagnosis: Flank pain, Shingles Disposition: HOME/ ROUTINE Disposition Time: 12:00 Condition: STABLE Discharge Instructions (ExitCare): Shingles (ED), Acute Hematuria (ED), Flank Pain (ED) Additional Instructions: please follow up with your doctor. return to emergency room with worsening symptoms or concerns. please see specailist and discuss your results with specialist. Prescriptions: Acyclovir [Zovirax] 800 mg PO 5XD #35 tab Referrals: Yariel Ma MD [Staff Provider] - Follow up with primary PCP,NO [Primary Care Provider] - Follow up with primary Forms: [employer] ([place])
[2016-12-27 11:39] LABS: INR 1.08 (0.93-1.08)
[2016-12-27 11:46] LABS: BLOOD UREA NITROGEN 10 mg/dL (7-21); CARBON DIOXIDE 26 mmol/L (21-33); CHLORIDE 98 mmol/L (98-107); GFR AFRICAN-AMERICAN > 60; GLUCOSE,RANDOM 221 mg/dL (70-110); SODIUM 136 mmol/L (132-148)
[2016-12-27 11:48] LABS: ALB/GLOB RATIO 1.6 (1.1-1.8); ALKALINE PHOSPHATASE 80 U/L (38-126); ALT/SGPT 77 U/L (7-56); AST/SGOT 66 U/L (17-59); BILIRUBIN,TOTAL 0.6 mg/dL (0.2-1.3); CALCIUM 9.4 mg/dL (8.4-10.5); LIPASE 147 U/L (23-300); TOTAL PROTEIN 7.4 g/dL (5.8-8.3)
--- NOTE | 2016-12-27 12:30 | CT ---
PROCEDURE: CT Abdomen and Pelvis without intravenous contrast HISTORY: right flank pain COMPARISON: None. TECHNIQUE: Helical CT of the abdomen and pelvis was performed without oral or intravenous contrast as per referring physician request .. Contrast Dose: None Radiation dose: Total exam DLP = 402.65 mGy-cm. This CT exam was performed using one or more of the following dose reduction techniques: Automated exposure control, adjustment of the mA and/or kV according to patient size, and/or use of iterative reconstruction technique. FINDINGS: LOWER THORAX: Limited linear atelectasis or fibrosis seen at the bilateral bases. There is also a small hiatal hernia. LIVER: The liver is diminished in attenuation indicative of diffuse fatty infiltration. No discrete mass identified nevertheless. GALLBLADDER AND BILE DUCTS: Prior cholecystectomy. PANCREAS: Unremarkable. No gross lesion or ductal dilatation. SPLEEN: Unremarkable. ADRENALS: Unremarkable. No mass. KIDNEYS AND URETERS: Nonspecific streaky perinephric changes are appreciated bilaterally without obstructive uropathy or radiodense urolithiasis identified. Ureters appear normal caliber throughout. Urinary bladder is decompressed but also with no associated radiodense urolithiasis at this time. Small calcification is seen inferior to the urinary bladder. VASCULATURE: Unremarkable. No aortic aneurysm. BOWEL: A large small bowel appear largely decompressed with limited retained fecal material scattered throughout the large bowel. No overall suspicious bowel findings in this unenhanced abdomen and pelvis CT examination. APPENDIX: Not identified. No CT evidence to suggest appendicitis. PERITONEUM: Unremarkable. No free fluid. No free air. LYMPH NODES: Unremarkable. No enlarged lymph nodes. REPRODUCTIVE: Enlarged prostate gland. OTHER FINDINGS: There are mild compression fractures of the T12 and likely L1 vertebral bodies of indeterminate age with both appearing anteriorly wedged slightly. IMPRESSION: 1. No radiodense urolithiasis, obstructive uropathy or prominent perinephric reaction appears streaky perinephric changes are appreciated bilaterally which are nonspecific and of uncertain origin. 2. Prior cholecystectomy. 3. Fatty liver. 4. Enlarged prostate gland. 5. Likely limited compression fractures of T12 and L1 of indeterminate age. No fragmentation appreciable or destructive bony lesion related.
[2016-12-27 12:33] VITALS: BP 132/73; PULSE 66; RESP 16; O2SAT 96
== END 2016-12-27 12:47 | disposition home or self-care (01) ==
LOC: ED 10:41
DX: B02.9 Zoster without complications (principal); R10.9 Unspecified abdominal pain; E11.9 Type 2 diabetes mellitus without complications; I10 Essential (primary) hypertension; N40.0 Benign prostatic hyperplasia without lower urinary tract symptoms; Z87.891 Personal history of nicotine dependence; Z88.0 Allergy status to penicillin
CPT/HCPCS: 74176; 80053; 81001; 83690; 85025; 85610; 85730; 87086; 99283; J7040